=== PATIENT | male | born 1980 | race Caucasian/White ===

== ENCOUNTER 2023-04-25 11:05 | Emergency (ER) | payer OTHER, SELFPAY ==
[2023-04-25 11:20] VITALS: BP 119/78; PULSE 62; RESP 20; TEMP 36.8; O2SAT 98; BMI 27.7
--- NOTE | 2023-04-25 11:31 | ED_ITS ---
HPI - Abdominal Pain General Chief Complaint: Abdominal Pain Stated Complaint: ABDOMINAL PAIN Time Seen by Provider: 04/25/23 11:31 Source: patient Mode of arrival: walk-in Limitations: no limitations History of Present Illness HPI narrative: Patient says emergency department complaining of abdominal pain. Patient states the last 3 days he has epigastric pain. He states he has been nauseated denies any diarrhea or constipation. Patient denies any vomiting. He states he felt that he had acid reflux so he has been taking Tums and [id number] antacids. He states at times it feels like it gets better but most of the times it remains. There is nothing that makes the pain better or worse. He has no previous history of abdominal problems. He denies any chest pain, shortness of breath. He denies any fever, chills, or cough. He states that when he does have a cough or clearing his throat and that makes his abdomen hurts. He denies any trauma. He denies any flank pain, hematuria, dysuria. Pain does not radiate anywhere.Patient does not drink any alcohol. He does not take any Tylenol. He has no previous history of hepatitis. He denies any IV drug use. Related Data Home Medications Medication Instructions Recorded Confirmed cetirizine 10 mg tablet (24Hour 5 mg PO DAILY PRN allergy symptoms 04/25/23 04/25/23 Allergy) Allergies Allergy/AdvReac Type Severity Reaction Status Date / Time No Known Drug Allergies Allergy Verified 04/25/23 11:23 Review of Systems ROS Status of ROS 10 or more systems reviewed and unremarkable except as noted in history and below Exam Narrative Exam Narrative: Nurses notes and vital signs reviewed and patient is not hypoxic. General: Nontoxic, Well-appearing and in no apparent distress. Skin: Warm, dry, no pallor noted. No Rash Head: Normocephalic, atraumatic. Neck: Supple, non-tender. Eye: Pupils are equal, round and EOMI. No scleral icterus. Ears, Nose, Mouth, and Throat: TM clear, no posterior oropharynx erythema or nasal mucosal hypertrophy, uvula is mid-line Oral mucosa is moist Cardiovascular: Regular Rate and Rhythm without murmur, gallop or rub. Respiratory: No accessory muscle use or respiratory distress. Lungs are clear to auscultation, no wheezing, rales or rhonchi Chest Wall: no tenderness Back: No midline thoracic or lumbar vertebral tenderness. No CVA tenderness Musculoskeletal: normal ROM, no calf or popliteal tenderness, no lower extremity edema/swelling GI: Abdomen is soft, non-distended. Normal bowel sounds.. Mild right upper quadrant tenderness to palpation. No rebound, guarding, or rigidity noted. Neurological: A&O x4. No cranial nerve dysfunction observed. No truncal ataxia. Moves all extremities. Sensation intact. Psychiatric: Cooperative and interactive. Normal mood and affect. Constitutional Vital Signs, click to edit/add: Last Vital Signs Temp 98.2 F 04/25/23 11:20 Pulse 62 04/25/23 11:20 Resp 20 04/25/23 11:20 BP 119/78 04/25/23 11:20 Pulse Ox 98 04/25/23 11:20 O2 Del Method Room Air 04/25/23 11:20 Course Vital Signs Vital signs: Vital Signs Temperature 98.2 F 04/25/23 11:20 Pulse Rate 62 04/25/23 11:20 Respiratory Rate 20 04/25/23 11:20 Blood Pressure 119/78 04/25/23 11:20 Pulse Oximetry 98 04/25/23 11:20 Oxygen Delivery Method Room Air 04/25/23 11:20 Temperature 98.2 F 04/25/23 11:20 Pulse Rate 62 04/25/23 11:20 Respiratory Rate 20 04/25/23 11:20 Blood Pressure 119/78 04/25/23 11:20 Pulse Oximetry 98 04/25/23 11:20 Oxygen Delivery Method Room Air 04/25/23 11:20 MDM - Abdominal Pain MDM Narrative Medical decision making narrative: Patient was given IV fluids, Zofran, and Toradol. Patient had CT abdomen and pelvis which did not show anything acute. Right upper quadrant ultrasound shows sludge. Discussed all results with Dr. Nicole who advised the patient should follow-up with a recreation worker. This time there is no signs of acute cholecystitis. Patient is instructed to avoid fatty foods and fried foods. He is advised to not take any Tylenol and not to drink any alcohol. He is follow-up with his primary care doctor and recreation worker. At this time the patient is without objective evidence of an acute process requiring hospitalization or inpatient management. The patient has remained hemodynamically stable. No additional indication for emergent studies at this time. I answered all questions. Discussed discharge instructions including standard anticipatory guidance and what should prompt a return to the emergency department, including if they get worse are not getting better or develops any new or concerning symptoms. I've given them specific time frame in which to follow-up, and who to follow-up with. The patient demonstrates understanding. Patient is nontoxic and stable for discharge with outpatient follow-up. This note was created with the assistance of a speech recognition program. Although the intention is to generate documents that actually reflects the content of the visit, no guarantees can be provided that every mistake has been identified and corrected by editing. Differential Diagnosis Differential diagnosis: Likely abdominal pain, acute appendicitis, calculus of kidney, diverticulitis, gastroenteritis and pancreatitis Lab Data Attestation: I reviewed the patient's lab results. Labs: Lab Results 04/25/23 04/25/23 Range/Units 11:30 13:00 WBC 7.1 (4.0-11.0) 10^3/uL RBC 5.35 (4.70-6.10) 10^6/uL Hgb 15.5 (14.0-18.0) g/dL Hct 46.6 (42.0-54.0) % MCV 87.1 (80.0-94.0) fL MCH 29.0 (25.9-34.0) pg MCHC 33.3 (29.9-35.2) g/dL RDW 12.6 (11.0-15.0) % Plt Count 182 (150-450) 10^3/uL MPV 8.8 L (9.5-13.5) fL Neut % (Auto) 68.6 (43.0-75.0) % Lymph % (Auto) 19.4 L (20.5-60.0) % [place] % (Auto) 8.7 (1.7-12.0) % Eos % (Auto) 2.1 (0.9-7.0) % Baso % (Auto) 0.6 (0.2-2.0) % Neut # (Auto) 4.9 (1.4-6.5) 10^3/uL Lymph # (Auto) 1.4 (1.2-3.8) 10^3/uL [place] # (Auto) 0.6 (0.3-0.8) 10^3/uL Eos # (Auto) 0.2 (0.0-0.7) 10^3/uL Baso # (Auto) 0.0 (0.0-0.1) 10^3/uL Abs Immat Gran (auto) 0.04 H (0.00-0.03) 10^3/uL Imm/Tot Granulo (auto) 0.6 H (0.0-0.5) % Sodium 141 (136-145) mmol/L Potassium 4.0 (3.5-5.1) mmol/L Chloride 105 (98-107) mmol/L Carbon Dioxide 27.0 (21.0-32.0) mmol/L Anion Gap 13.0 BUN 16.0 (7.0-18.0) mg/dL Creatinine 1.11 (0.70-1.30) mg/dL Est GFR ( Amer) >60 (>=60) Est GFR (Non-Af Amer) >60 (>=60) BUN/Creatinine Ratio 14.4 Glucose 112 H (74-106) mg/dL Lactate 1.0 (0.4-2.0) mmol/L Calcium 8.9 (8.5-10.1) mg/dL Total Bilirubin 2.0 H (0.2-1.0) mg/dL AST 89 H (15-37) U/L ALT 110 H (16-63) U/L Alkaline Phosphatase 64 (46-116) U/L Total Protein 7.4 (6.4-8.2) g/dL Albumin 4.5 (3.4-5.0) g/dL Globulin 2.9 g/dL Albumin/Globulin Ratio 1.6 Lipase 44.0 L (73.0-393.0) U/L Urine Color Lt. yellow (YELLOW) Urine Clarity Clear (CLEAR) Urine pH 6.0 (5.0-9.0) Ur Specific [place] 1.010 (1.005-1.025) Urine Protein Negative (NEG/TRACE) mg/dL Urine Glucose (UA) Negative (NEGATIVE) mg/dL Urine Ketones Negative (NEGATIVE) mg/dL Urine Occult Blood Trace-i (NEGATIVE) Urine Nitrite Negative (NEGATIVE) Urine Bilirubin Negative (NEGATIVE) Urine Urobilinogen 0.2 (0.2-1.0) EU/dL Ur Leukocyte Esterase Negative (NEGATIVE) Urine RBC 0-2 (0-2) #/HPF Urine WBC None seen (NONE SEEN) #/HPF Ur Squamous Epith Cells None seen (NONE/RARE) #/LPF Urine Crystals None seen (None Seen) #/HPF Urine Bacteria Trace A (NONE SEEN) #/HPF Urine Casts None seen (NONE SEEN) #/LPF Urine Mucus None seen (NONE SEEN) Ur Culture Indicated? No Discharge Plan Discharge Chief Complaint: Abdominal Pain Clinical Impression: Elevation of levels of liver transaminase levels, Abdominal pain Patient Disposition: Home, Self-Care Time of Disposition Decision: 14:42 Condition: Good Mode of Transportation: Private Vehicle Prescriptions / Home Meds: No Action cetirizine [24Hour Allergy] 10 mg tablet 5 mg PO DAILY PRN (Reason: allergy symptoms) Instructions: Non-Alcoholic Fatty Liver Disease (ED), Abdominal Pain (ED) Stand Alone Forms: Portal Instructions Referrals: ALETHEA GARCIA [Primary Care Provider] - 1 week Ollie iNcole MD [Physician] - 1 week
[2023-04-25 11:45] LABS: Basophils Percent Auto 0.6 % (0.2-2.0); Eosinophils Absolute Auto 0.2 10^3/uL (0.0-0.7); Eosinophils Percent Auto 2.1 % (0.9-7.0); Hematocrit 46.6 % (42.0-54.0); Hemoglobin 15.5 g/dL (14.0-18.0); Immature Granulocytes Abs Auto 0.04 10^3/uL (0.00-0.03); Immature Granulocytes Pct Auto 0.6 % (0.0-0.5); Lymphocytes Absolute Auto 1.4 10^3/uL (1.2-3.8); Lymphocytes Percent Auto 19.4 % (20.5-60.0); Mean Corpuscular HGB Conc 33.3 g/dL (29.9-35.2); Mean Corpuscular Volume 87.1 fL (80.0-94.0); Mean Platelet Volume 8.8 fL (9.5-13.5); Monocytes Absolute Auto 0.6 10^3/uL (0.3-0.8); Monocytes Percent Auto 8.7 % (1.7-12.0); Neutrophils Absolute Auto 4.9 10^3/uL (1.4-6.5); Neutrophils Percent Auto 68.6 % (43.0-75.0); Platelet Count 182 10^3/uL (150-450); Red Blood Count 5.35 10^6/uL (4.70-6.10); Red Cell Distribution Width 12.6 % (11.0-15.0); White Blood Count 7.1 10^3/uL (4.0-11.0)
[2023-04-25] MEDS: 0.9 % SODIUM CHLORIDE 1,000 ML 999 ML IV (11:45)
[2023-04-25 12:05] LABS: Alanine Aminotransferase 110 U/L (16-63); Albumin Globulin Ratio 1.6; Albumin Level 4.5 g/dL (3.4-5.0); Alkaline Phosphatase 64 U/L (46-116); Aspartate Amino Transferase 89 U/L (15-37); BUN Creatinine Ratio 14.4; Calcium 8.9 mg/dL (8.5-10.1); Chloride 105 mmol/L (98-107); Estimated GFR (African America >60 (>=60); Estimated GFR (Non-African Ame >60 (>=60); Globulin 2.9 g/dL; Glucose 112 mg/dL (74-106); Sodium 141 mmol/L (136-145); Total Protein 7.4 g/dL (6.4-8.2)
--- NOTE | 2023-04-25 12:10 | US_ITS ---
The [address] [address] Patient Name: JULIO KULKARNI MRN: [id number] date: 1980 Sex: M Assigned Patient Location: ER Current Patient Location: ER Accession/Order Number: [id number] Exam Date: 04/25/2023 12:30 Report Date: 04/25/2023 13:21 At the request of: FRANKIE BEAN Procedure: US right upper quadrant PROCEDURE: US right upper quadrant, 04/25/2023 12:30 PM EDT CLINICAL INDICATIONS: Right upper quadrant abdominal pain, symptoms for 3 days COMPARISON: None TECHNIQUE: Right upper quadrant abdominal sonogram FINDINGS: Visualized pancreas is unremarkable. No ductal dilatation is seen. Portions of head and tail segments are obscured. Coarsened hepatic echotexture, mild increased echogenicity noted. Visualized contour is smooth. Visualized portal vein patent with antegrade flow. Focal abnormality is not evident. Main portal vein is patent with antegrade phasic flow, normal velocity. Right lobe measures up to 16 cm craniocaudally. Common bile duct 0.6 cm. Wall thickening is not evident. Dependent sludge or nonshadowing microcalculi is seen near the gallbladder fundus. Convincing shadowing calculus is not evident. No localized pain. Right kidney is normal in morphology. It measures 9.3 x 6.4 x 5.7 cm. No hydronephrosis or shadowing calculus is identified. Focal renal abnormality is not demonstrated. No free fluid. US/US right upper quadrant IMPRESSION: 1. Mild dependent gallbladder sludge or not shadowing microcalculi in the fundus of the gallbladder. Shadowing calculus, wall thickening, localized pain, or bile duct dilatation are not evident 2. Borderline hepatomegaly and hepatic steatosis Electronically authenticated by: SASCHA GALO Date: 04/25/2023 13:21
[2023-04-25] MEDS: ONDANSETRON PF 4 MG/2 ML VIAL IV (12:22)
[2023-04-25] MEDS: KETOROLAC TROMETHAMINE 30 MG/ML VIAL IVP (12:22)
[2023-04-25] MEDS: FAMOTIDINE/PF 20 MG/2 ML VIAL IV (12:22)
[2023-04-25 13:20] LABS: Bilirubin Urine NEGATIVE (NEGATIVE); Blood Urine TRACE-I (NEGATIVE); Clarity Urine CLEAR (CLEAR); Color Urine LT. YELLOW (YELLOW); Glucose Urine UA NEGATIVE (NEGATIVE); Ketones Urine NEGATIVE (NEGATIVE); Leukocyte Esterase Urine NEGATIVE (NEGATIVE); Nitrite Urine NEGATIVE (NEGATIVE); Protein Urine NEGATIVE (NEG/TRACE); Urobilinogen Urine 0.2 EU/dL (0.2-1.0)
[2023-04-25 13:24] LABS: Urine Microscopic Indicated YES
[2023-04-25 13:37] LABS: RBC Urine 0-2 #/HPF (0-2); WBC Urine NONE SEEN #/HPF (NONE SEEN)
[2023-04-25 13:38] LABS: Bacteria Urine TRACE #/HPF (NONE SEEN); Cast Seen? NONE SEEN #/LPF (NONE SEEN); Crystals Seen? None Seen #/HPF (None Seen); Mucus Urine NONE SEEN (NONE SEEN); Squamous Epithelial Cell Urine NONE SEEN #/LPF (NONE/RARE); Urine Culture Indicated NO
--- NOTE | 2023-04-25 14:08 | CT_ITS ---
The [address] [address] Patient Name: JULIO KULKARNI MRN: [id number] date: 1980 Sex: M Assigned Patient Location: ER Current Patient Location: ER Accession/Order Number: [id number] Exam Date: 04/25/2023 14:00 Report Date: 04/25/2023 14:24 At the request of: FRANKIE BEAN Procedure: CT abdomen pelvis w con CT abdomen pelvis w con, 04/25/2023 2:00 PM EDT INDICATION: Right upper quadrant pain x2 days after eating. COMPARISON: Right upper quadrant ultrasound 04/25/2023 TECHNIQUE: Axial images of the abdomen and pelvis were obtained after the administration of IV contrast. Multiplanar reformatted images were generated and reviewed as needed. Dose reduction techniques were achieved by using automated exposure control and/or adjustment of mA and/or kV according to patient size and/or use of iterative reconstruction technique. FINDINGS: No consolidation or effusion. The liver, gallbladder, pancreas and adrenals are unremarkable. Calcified splenic granulomas. Symmetric nephrograms without evidence of obstruction. 1 mm nonobstructing calculus upper pole the left kidney. No ureteral or urinary bladder calculi. Prostate gland and seminal vesicles unremarkable. No aortic aneurysm. No bowel obstruction or acute focal inflammation. Normal appendix. No pneumatosis, pneumoperitoneum or ascites. No mesenteric or retroperitoneal lymphadenopathy. No acute fracture or dislocation. Hemangioma T11 vertebral body. CT/CT abdomen pelvis w con IMPRESSION: 1. No acute findings. 2. Nonobstructing left nephrolithiasis. Electronically authenticated by: YOBANY RAYMUNDO Date: 04/25/2023 14:24
[2023-04-26 08:10] LABS: HBsAg Screen Negative (Negative); HCV Ab Non Reactive (Non Reactive); Hep A Ab, IgM Negative (Negative); Hep B Core Ab, IgM Negative (Negative)
== END 2023-04-25 15:08 | disposition home or self-care (01) ==
PROVIDERS: Emergency Provider Emergency Medicine; PCP Family Medicine
DX: R10.9 Unspecified abdominal pain (principal); R74.01 Elevation of levels of liver transaminase levels; Z79.899 Other long term (current) drug therapy
CPT/HCPCS: 36415; 74177; 76705; 80053; 80074; 81001; 83605; 83690; 85025; 96374; 96375; 99285; Q9967

== ENCOUNTER 2023-05-06 22:58 | Emergency (ER) | payer OTHER, SELFPAY ==
[2023-05-06] VITALS (8 sets, daily range): BP systolic 123–124; BP diastolic 75–89; PULSE 53–64; RESP 12–20; TEMP 36.5; O2SAT 97–100; BMI 27.8
--- NOTE | 2023-05-06 23:17 | PC.NURSE ---
patient states around 5pm he developed heartburn pain states it felt like heartburn but alos felt the pain in his abdomen. states now the pain is less in his upper chest and more generalized to abdomen and wraps around to his back. states he last ate chicken for dinner around 5pm. patient states he had a similar episode a few weeks ago and was seen in this ER and had testing done and was told he had a fatty liver . patient states he follow up with his PCP and was told he had ketosis and kidney infection . pcp started patient on pepcid, sucrafate, and an antibiotic. has been taking all directly as prescribed. states he just had repeat labs drawn today but has not had results yet and has follow up appointment with PCP scheduled. denies any other medical history. denies shortness of breath. denies being nauseous at this time but states earlier he did feel nauseous. denies any constipation, states he recently has had loose stools but believes this is related to antibiotic use.
--- NOTE | 2023-05-06 23:18 | ED.ABDPAIN1 ---
HPI - Abdominal Pain General Chief Complaint: Abdominal Pain Stated Complaint: abd pain Time Seen by Provider: 05/06/23 23:13 Source: patient Mode of arrival: walk-in Limitations: no limitations History of Present Illness HPI narrative: presents complaining of epigastric abdominal pain. states seen here about 2 weeks ago for same pain and workup including CT and US gallbladder found fatty liver and gallbladder sludge. Has been taking prescribed Pepcid. Pain again tonight since 5pm. Not short of breath. No vomiting. Presents because of the pain MD elicited complaint: Reports abdominal pain Related Data Home Medications Medication Instructions Recorded Confirmed cetirizine 10 mg tablet (24Hour 5 mg PO DAILY PRN allergy symptoms 04/25/23 04/25/23 Allergy) cefuroxime axetil 500 mg tablet 500 mg PO DAILY 05/06/23 05/06/23 famotidine 20 mg tablet 20 mg PO DAILY 05/06/23 05/06/23 sucralfate 1 gram tablet 1 g PO DAILY 05/06/23 05/06/23 Allergies Allergy/AdvReac Type Severity Reaction Status Date / Time No Known Drug Allergies Allergy Verified 04/25/23 11:23 Review of Systems ROS Status of ROS 10 or more systems reviewed and unremarkable except as noted in history and below Exam Constitutional Vital Signs, click to edit/add: Last Vital Signs Temp 97.7 F 05/06/23 23:02 Pulse 61 05/06/23 23:50 Resp 15 05/06/23 23:50 BP 124/89 05/06/23 23:33 Pulse Ox 97 05/06/23 23:50 O2 Del Method Room Air 05/06/23 23:02 Common normals: average body habitus, oriented x3, healthy appearing and well nourished Other: mild distress due to pain Eye Common normals: PERRL, EOMs intact bilaterally and conjunctivae normal Respiratory Common normals: normal respiratory effort, no retractions, no use of accessory muscles and clear to auscultation bilaterally GI Other: mod RUQ tenderness Extremity Common normals: normal to inspection and full ROM Neuro Common normals: oriented x3, CN's II-XII intact bilaterally, moves all extremities, no focal motor deficits and no sensory deficits noted Psych Appearance: grossly normal Course Vital Signs Vital signs: Vital Signs Temperature 97.7 F 05/06/23 23:02 Pulse Rate 58 L 05/06/23 23:02 Respiratory Rate 20 05/06/23 23:02 Blood Pressure 123/75 05/06/23 23:02 Pulse Oximetry 100 05/06/23 23:02 Oxygen Delivery Method Room Air 05/06/23 23:02 Temperature 97.7 F 05/06/23 23:02 Pulse Rate 61 05/06/23 23:50 Respiratory Rate 15 05/06/23 23:50 Blood Pressure 124/89 05/06/23 23:33 Pulse Oximetry 97 05/06/23 23:50 Oxygen Delivery Method Room Air 05/06/23 23:02 MDM - Abdominal Pain MDM Narrative Medical decision making narrative: patient returns with epigastric and RUQ pain. Seen previously and found to have gallbladder sludge. Exam with RUQ tenderness. pain resolved after Toradol. Workup included neg serial troponins. Patient discharged home and recommended he follow up with [facility] with working diagnosis of biliary colic Lab Data Labs: Lab Results 05/06/23 05/06/23 05/07/23 Range/Units 23:13 23:34 02:01 WBC 7.3 (4.0-11.0) 10^3/uL RBC 5.01 (4.70-6.10) 10^6/uL Hgb 14.6 (14.0-18.0) g/dL Hct 43.6 (42.0-54.0) % MCV 87.0 (80.0-94.0) fL MCH 29.1 (25.9-34.0) pg MCHC 33.5 (29.9-35.2) g/dL RDW 12.8 (11.0-15.0) % Plt Count 178 (150-450) 10^3/uL MPV 9.2 L (9.5-13.5) fL Neut % (Auto) 60.4 (43.0-75.0) % Lymph % (Auto) 25.4 (20.5-60.0) % [place] % (Auto) 11.1 (1.7-12.0) % Eos % (Auto) 2.2 (0.9-7.0) % Baso % (Auto) 0.6 (0.2-2.0) % Neut # (Auto) 4.4 (1.4-6.5) 10^3/uL Lymph # (Auto) 1.9 (1.2-3.8) 10^3/uL [place] # (Auto) 0.8 (0.3-0.8) 10^3/uL Eos # (Auto) 0.2 (0.0-0.7) 10^3/uL Baso # (Auto) 0.0 (0.0-0.1) 10^3/uL Abs Immat Gran (auto) 0.02 (0.00-0.03) 10^3/uL Imm/Tot Granulo (auto) 0.3 (0.0-0.5) % D-Dimer <0.19 (<=0.59) mg/L FEU Sodium 138 (136-145) mmol/L Potassium 3.6 (3.5-5.1) mmol/L Chloride 102 (98-107) mmol/L Carbon Dioxide 27.9 (21.0-32.0) mmol/L Anion Gap 11.7 BUN 13.0 (7.0-18.0) mg/dL Creatinine 1.11 (0.70-1.30) mg/dL Est GFR ( Amer) >60 (>=60) Est GFR (Non-Af Amer) >60 (>=60) BUN/Creatinine Ratio 11.7 Glucose 107 H (74-106) mg/dL Lactate 0.9 (0.4-2.0) mmol/L Calcium 8.6 (8.5-10.1) mg/dL Total Bilirubin 1.4 H (0.2-1.0) mg/dL AST 92 H (15-37) U/L ALT 93 H (16-63) U/L Alkaline Phosphatase 73 (46-116) U/L Troponin I High Sens <4.0 L 4.4 (4.0-76.1) pg/mL Total Protein 6.8 (6.4-8.2) g/dL Albumin 4.1 (3.4-5.0) g/dL Globulin 2.7 g/dL Albumin/Globulin Ratio 1.5 Lipase 63.0 L (73.0-393.0) U/L Urine Color Lt. yellow (YELLOW) Urine Clarity Clear (CLEAR) Urine pH 6.5 (5.0-9.0) Ur Specific [place] 1.015 (1.005-1.025) Urine Protein Negative (NEG/TRACE) mg/dL Urine Glucose (UA) Negative (NEGATIVE) mg/dL Urine Ketones Negative (NEGATIVE) mg/dL Urine Occult Blood Trace-i (NEGATIVE) Urine Nitrite Negative (NEGATIVE) Urine Bilirubin Negative (NEGATIVE) Urine Urobilinogen 1.0 (0.2-1.0) EU/dL Ur Leukocyte Esterase Negative (NEGATIVE) Discharge Plan Discharge Chief Complaint: Abdominal Pain Clinical Impression: Abdominal pain, Biliary colic Patient Disposition: Home, Self-Care Prescriptions / Home Meds: No Action cetirizine [24Hour Allergy] 10 mg tablet 5 mg PO DAILY PRN (Reason: allergy symptoms) famotidine 20 mg tablet 20 mg PO DAILY sucralfate 1 gram tablet 1 g PO DAILY cefuroxime axetil 500 mg tablet 500 mg PO DAILY Instructions: Biliary Colic (ED) Additional Instructions: follow up with gen. surgery. return if pain recurs Stand Alone Forms: Portal Instructions Referrals: ALETHEA GARCIA [Primary Care Provider] - 1 week
--- NOTE | 2023-05-06 23:21 | ECG_ITS ---
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
[2023-05-06 23:30] LABS: Basophils Percent Auto 0.6 % (0.2-2.0); Eosinophils Absolute Auto 0.2 10^3/uL (0.0-0.7); Eosinophils Percent Auto 2.2 % (0.9-7.0); Hematocrit 43.6 % (42.0-54.0); Hemoglobin 14.6 g/dL (14.0-18.0); Immature Granulocytes Abs Auto 0.02 10^3/uL (0.00-0.03); Immature Granulocytes Pct Auto 0.3 % (0.0-0.5); Lymphocytes Absolute Auto 1.9 10^3/uL (1.2-3.8); Lymphocytes Percent Auto 25.4 % (20.5-60.0); Mean Corpuscular HGB Conc 33.5 g/dL (29.9-35.2); Mean Corpuscular Hemoglobin 29.1 pg (25.9-34.0); Mean Platelet Volume 9.2 fL (9.5-13.5); Monocytes Absolute Auto 0.8 10^3/uL (0.3-0.8); Monocytes Percent Auto 11.1 % (1.7-12.0); Neutrophils Absolute Auto 4.4 10^3/uL (1.4-6.5); Neutrophils Percent Auto 60.4 % (43.0-75.0); Platelet Count 178 10^3/uL (150-450); Red Blood Count 5.01 10^6/uL (4.70-6.10); Red Cell Distribution Width 12.8 % (11.0-15.0); White Blood Count 7.3 10^3/uL (4.0-11.0)
[2023-05-06 23:44] LABS: D Dimer <0.19 mg/L FEU (<=0.59)
[2023-05-06] MEDS: 0.9 % SODIUM CHLORIDE 1,000 ML 999 ML IV (23:46)
[2023-05-06] MEDS: KETOROLAC TROMETHAMINE 30 MG/ML VIAL IVP (23:47)
[2023-05-06] MEDS: ONDANSETRON PF 4 MG/2 ML VIAL IV (23:47)
[2023-05-06 23:54] LABS: Alanine Aminotransferase 93 U/L (16-63); Albumin Globulin Ratio 1.5; Albumin Level 4.1 g/dL (3.4-5.0); Alkaline Phosphatase 73 U/L (46-116); Anion Gap 11.7; Aspartate Amino Transferase 92 U/L (15-37); BUN Creatinine Ratio 11.7; Bilirubin Total 1.4 mg/dL (0.2-1.0); Calcium 8.6 mg/dL (8.5-10.1); Carbon Dioxide 27.9 mmol/L (21.0-32.0); Chloride 102 mmol/L (98-107); Estimated GFR (African America >60 (>=60); Estimated GFR (Non-African Ame >60 (>=60); Globulin 2.7 g/dL; Glucose 107 mg/dL (74-106); Lactate/Lactic Acid 0.9 mmol/L (0.4-2.0); Potassium 3.6 mmol/L (3.5-5.1); Sodium 138 mmol/L (136-145); Total Protein 6.8 g/dL (6.4-8.2); Troponin I High Sensitivity <4.0 pg/mL (4.0-76.1)
[2023-05-07 00:14] LABS: Bilirubin Urine NEGATIVE (NEGATIVE); Blood Urine TRACE-I (NEGATIVE); Clarity Urine CLEAR (CLEAR); Color Urine LT. YELLOW (YELLOW); Glucose Urine UA NEGATIVE (NEGATIVE); Ketones Urine NEGATIVE (NEGATIVE); Leukocyte Esterase Urine NEGATIVE (NEGATIVE); Nitrite Urine NEGATIVE (NEGATIVE); Protein Urine NEGATIVE (NEG/TRACE); Specific Gravity Urine 1.015 (1.005-1.025); pH Urine 6.5 (5.0-9.0)
[2023-05-07 00:33] LABS: Urine Microscopic Indicated NO
[2023-05-07 02:26] LABS: Troponin I High Sensitivity 4.4 pg/mL (4.0-76.1)
== END 2023-05-07 02:50 | disposition home or self-care (01) ==
PROVIDERS: Emergency Provider Internal Medicine; PCP Family Medicine
DX: K80.50 Calculus of bile duct without cholangitis or cholecystitis without obstruction (principal); R10.11 Right upper quadrant pain; R10.13 Epigastric pain
CPT/HCPCS: 36415; 80053; 81003; 83605; 83690; 84484; 85025; 85378; 93005; 96374; 96375; 99285

== ENCOUNTER 2024-01-19 21:49 | Emergency (ER) | payer OTHER, SELFPAY ==
[2024-01-19 21:55] VITALS: BP 151/89; PULSE 77; TEMP 36.9; O2SAT 96; BMI 27.7
[2024-01-19 21:56] VITALS: BP 151/89
--- NOTE | 2024-01-19 22:01 | ECG_ITS ---
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
--- NOTE | 2024-01-19 22:23 | XR_ITS ---
The [address] [address] Patient Name: JULIO KULKARNI MRN: [id number] date: 1980 Sex: M Assigned Patient Location: ER Current Patient Location: ER Accession/Order Number: [id number] Exam Date: 01/19/2024 23:05 Report Date: 01/20/2024 00:20 At the request of: JIMBO MULLIGAN Procedure: XR chest 1V XR chest 1V 01/19/2024 11:05 PM EDT CLINICAL INDICATION: Shortness of breath COMPARISON: 09/17/2021 TECHNIQUE: Portable semiupright AP view of the chest. FINDINGS: There are no tubes or implants noted. The cardiomediastinal silhouette and pulmonary vasculature are within normal limits. Right upper lung zone calcified granuloma. The lungs are clear. No pneumothorax or pleural effusion. Osseous structures and soft tissues are within normal limits. XR/XR chest 1V IMPRESSION: No acute cardiopulmonary abnormality. Electronically authenticated by: CRISTIANO REARDON Date: 01/20/2024 00:20
--- NOTE | 2024-01-19 22:25 | ED_ITS ---
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 Tonight at home in the shower he did not feel right . [place] weak and short of breath. laid down without improvement. BP elevated at home and decided to come in. No nausea. non smoker Related Data Home Medications ?Medication ?Instructions ?Recorded ?Confirmed cetirizine 10 mg tablet (24Hour 5 mg PO DAILY PRN allergy symptoms 04/25/23 01/19/24 Allergy) famotidine 20 mg tablet 20 mg PO DAILY 05/06/23 01/19/24 Allergies Allergy/AdvReac Type Severity Reaction Status Date / Time No Known Drug Allergies Allergy Verified 01/19/24 21:59 Review of Systems ROS Status of ROS 10 or more systems reviewed and unremark able except as noted in history and below Exam Constitutional Vital Signs, click to edit/add: Last Vital Signs Temp 98.5 F 01/19/24 21:55 Pulse 67 01/20/24 01:04 Resp 17 01/20/24 01:04 BP 118/78 01/20/24 01:00 Pulse Ox 96 01/19/24 21:55 O2 Del Method Room Air 01/19/24 21:55 Common normals: no apparent distress, average body habitus, oriented x3, no watson itations, healthy appearing, alert and well nourished [facility] Common normals: normocephalic and head/scalp atraumatic Eye Common normals: EOMs intact bilaterally and conjunctivae normal Respiratory Common normals: normal respiratory effort, no retractions, no use of accessory muscles and clear to auscultation bilaterally Cardio Common normals: regular rate, regular rhythm, S1 normal heart sound and S2 n ormal heart sound GI Common normals: Normal to inspection, nondistended, normoactive bowel sounds present, soft to palpation and non-tender Extremity Common normals: normal to inspection and full ROM Neuro Common normals: oriented x3, CN's II-XII intact bilaterally, moves all extremities and no focal motor deficits Psych Appearance: grossly normal Course Vital Signs Vital signs: Vital Signs Temperature 98.5 F 01/19/24 21:55 Pulse Rate 77 01/19/24 21:55 Respiratory Rate 18 01/19/24 21:55 Blood Pressure 151/89 H 01/19/24 21:55 Pulse Oximetry 96 01/19/24 21:55 Oxygen Delivery Method Room Air 01/19/24 21:55 Temperature 98.5 F 01/19/24 21:55 Pulse Rate 67 01/20/24 01:04 Respiratory Rate 17 01/20/24 01:04 Blood Pressure 118/78 01/20/24 01:00 Pulse Oximetry 96 01/19/24 21:55 Oxygen Delivery Method Room Air 01/19/24 21:55 MDM - Weakness MDM Narrative Medical decision making narrative: patient presented complaining of weakness sensation and also sensation of short of breath. Pulse ox RA 96% and patient without respiratory distress. PE normal. Workup in the department neg including normal d-dimer and neg serial troponin. Patient rechecked and now is asymptomatic. ? anxiety as cause. Discharged home to follow up with his family doctor Lab Data Labs: Lab Results 01/19/24 01/20/24 Range/Units 22:31 00:52 WBC 7.0 (4.0-11.0) 10^3/uL RBC 4.95 (4.70-6.10) 10^6/uL Hgb 14.5 (14.0-18.0) g/dL Hct 43.2 (42.0-54.0) % MCV 87.3 (80.0-94.0) fL MCH 29.3 (25.9-34.0) pg MCHC 33.6 (29.9-35.2) g/dL RDW 12.6 (11.0-15.0) % Plt Count 155 (150-450) 10^3/uL MPV 9.2 L (9.5-13.5) fL Neut % (Auto) 61.2 (43.0-75.0) % Lymph % (Auto) 23.0 (20.5-60.0) % [place] % (Auto) 9.9 (1.7-12.0) % Eos % (Auto) 4.4 (0.9-7.0) % Baso % (Auto) 0.9 (0.2-2.0) % Neut # (Auto) 4.3 (1.4-6.5) 10^3/uL Lymph # (Auto) 1.6 (1.2-3.8) 10^3/uL [place] # (Auto) 0.7 (0.3-0.8) 10^3/uL Eos # (Auto) 0.3 (0.0-0.7) 10^3/uL Baso # (Auto) 0.1 (0.0-0.1) 10^3/uL Abs Immat Gran (auto) 0.04 H (0.00-0.03) 10^3/uL Imm/Tot Granulo (auto) 0.6 H (0.0-0.5) % D-Dimer 0.19 (<=0.59) mg/L FEU Sodium 140 (136-145) mmol/L Potassium 3.8 (3.5-5.1) mmol/L Chloride 105 (98-107) mmol/L Carbon Dioxide 26.9 (21.0-32.0) mmol/L Anion Gap 11.9 BUN 22.0 H (7.0-18.0) mg/dL Creatinine 1.13 (0.70-1.30) mg/dL Est GFR ( Amer) >60 (>=60) Est GFR (Non-Af Amer) >60 (>=60) BUN/Creatinine Ratio 19.5 Glucose 142 H (74-106) mg/dL Calcium 8.9 (8.5-10.1) mg/dL Total Bilirubin 1.0 (0.2-1.0) mg/dL AST 20 (15-37) U/L ALT 39 (16-63) U/L Alkaline Phosphatase 75 (46-116) U/L Troponin I High Sens <4.0 L <4.0 L (4.0-76.1) pg/mL Total Protein 6.7 (6.4-8.2) g/dL Albumin 3.9 (3.4-5.0) g/dL Globulin 2.8 g/dL Albumin/Globulin Ratio 1.4 Lipase 22.0 (16.0-77.0) U/L Imaging Data Chest x-ray: Radiologist's impression: ITS Impressions Chest X-Ray 01/19/24 22:23 IMPRESSION: No acute cardiopulmonary abnormality. Electronically authenticated by: CRISTIANO REARDON Date: 01/20/2024 00:20 Discharge Plan Discharge Stand Alone Forms: Portal Instructions Chief Complaint: Weakness Clinical Impression: Weakness Patient Disposition: Home, Self-Care Prescriptions / Home Meds: No Action cetirizine [24Hour Allergy] 10 mg tablet 5 mg PO DAILY PRN (Reason: allergy symptoms) famotidine 20 mg tablet 20 mg PO DAILY Print Language: Irish Instructions: Weakness (ED) Additional Instructions: follow up with your doctor for a recheck in the next couple of days Referrals: ALETHEA GARCIA [Primary Care Provider] - 1 week
[2024-01-19 22:37] LABS: Basophils Absolute Auto 0.1 10^3/uL (0.0-0.1); Basophils Percent Auto 0.9 % (0.2-2.0); Eosinophils Absolute Auto 0.3 10^3/uL (0.0-0.7); Eosinophils Percent Auto 4.4 % (0.9-7.0); Hematocrit 43.2 % (42.0-54.0); Hemoglobin 14.5 g/dL (14.0-18.0); Immature Granulocytes Abs Auto 0.04 10^3/uL (0.00-0.03); Immature Granulocytes Pct Auto 0.6 % (0.0-0.5); Lymphocytes Absolute Auto 1.6 10^3/uL (1.2-3.8); Mean Corpuscular HGB Conc 33.6 g/dL (29.9-35.2); Mean Corpuscular Hemoglobin 29.3 pg (25.9-34.0); Mean Corpuscular Volume 87.3 fL (80.0-94.0); Mean Platelet Volume 9.2 fL (9.5-13.5); Monocytes Absolute Auto 0.7 10^3/uL (0.3-0.8); Monocytes Percent Auto 9.9 % (1.7-12.0); Neutrophils Absolute Auto 4.3 10^3/uL (1.4-6.5); Neutrophils Percent Auto 61.2 % (43.0-75.0); Platelet Count 155 10^3/uL (150-450); Red Blood Count 4.95 10^6/uL (4.70-6.10); Red Cell Distribution Width 12.6 % (11.0-15.0)
[2024-01-19] MEDS: 0.9 % SODIUM CHLORIDE 1,000 ML 999 ML IV (22:44)
[2024-01-19 22:47] VITALS: PULSE 77
[2024-01-19 22:51] LABS: D Dimer 0.19 mg/L FEU (<=0.59)
[2024-01-19 22:52] VITALS: PULSE 74
[2024-01-19 22:55] LABS: Alanine Aminotransferase 39 U/L (16-63); Albumin Globulin Ratio 1.4; Albumin Level 3.9 g/dL (3.4-5.0); Alkaline Phosphatase 75 U/L (46-116); Anion Gap 11.9; Aspartate Amino Transferase 20 U/L (15-37); BUN Creatinine Ratio 19.5; Calcium 8.9 mg/dL (8.5-10.1); Carbon Dioxide 26.9 mmol/L (21.0-32.0); Chloride 105 mmol/L (98-107); Estimated GFR (African America >60 (>=60); Estimated GFR (Non-African Ame >60 (>=60); Globulin 2.8 g/dL; Glucose 142 mg/dL (74-106); Potassium 3.8 mmol/L (3.5-5.1); Sodium 140 mmol/L (136-145); Total Protein 6.7 g/dL (6.4-8.2); Troponin I High Sensitivity <4.0 pg/mL (4.0-76.1)
[2024-01-19 23:16] VITALS: BP 127/86
[2024-01-19 23:30] VITALS: BP 124/80
[2024-01-20] VITALS (19 sets, daily range): BP systolic 114–119; BP diastolic 73–85; PULSE 65–78
[2024-01-20 01:15] LABS: Troponin I High Sensitivity <4.0 pg/mL (4.0-76.1)
== END 2024-01-20 01:48 | disposition home or self-care (01) ==
PROVIDERS: Emergency Provider Internal Medicine; PCP Family Medicine
DX: R53.1 Weakness (principal); Z79.899 Other long term (current) drug therapy
CPT/HCPCS: 36415; 71045; 80053; 83690; 84484; 85025; 85378; 93005; 99285

== ENCOUNTER 2024-10-06 15:33 | Emergency (ER) | payer OTHER, SELFPAY ==
[2024-10-06 15:37] VITALS: BP 122/86; PULSE 130; TEMP 38.7; O2SAT 97; BMI 27.7
--- NOTE | 2024-10-06 15:42 | XR_ITS ---
The [address] [address] Patient Name: JULIO KULKARNI MRN: [id number] date: 1980 Sex: M Assigned Patient Location: ER Current Patient Location: ED.MAIN Accession/Order Number: [id number] Exam Date: 10/06/2024 16:00 Report Date: 10/06/2024 16:57 At the request of: MACIEJ LIZ Procedure: XR chest 1V EXAM: XR chest 1V REASON FOR EXAM: Male, 44 years, Cough. TECHNIQUE: A single AP view of the chest is performed. COMPARISON: 01/19/2024. FINDINGS: The lungs are expanded and clear. Normal pleura. Normal size heart. Normal mediastinum and paula. Normal visualized pulmonary arteries. Normal visualized aortic arch and descending thoracic aorta. Normal visualized thoracic spine. Normal visualized ribs, clavicles, and shoulders. There is no demonstrated abnormality of the visualized soft tissue structures of the upper abdomen. XR/XR chest 1V IMPRESSION: Normal examination of the chest. Electronically authenticated by: CRISTY SALINAS Date: 10/06/2024 16:57
--- NOTE | 2024-10-06 15:56 | ED_ITS ---
HPI - Fever General Chief Complaint: Fever Stated Complaint: COVID (+) FEVER Time Seen by Provider: 10/06/24 15:34 Source: patient and family Mode of arrival: walk-in Limitations: no limitations History of Present Illness HPI Narrative: Patient is a 44-year-old male with a 3-day history of cough, fever who presents to the emergency department concerned that he may be dehydrated. He has had no episodes of vomiting or diarrhea. He has green sputum with coughing. He reports diffuse body aches. He took 325 mg of Tylenol prior to arrival with DayQuil. Temperatures as high as 102.0 Fahrenheit. Related Data Home Medications ?Medication ?Instructions ?Recorded ?Confirmed cetirizine 10 mg tablet (24Hour 5 mg PO DAILY PRN allergy symptoms 04/25/23 10/06/24 Allergy) methocarbamol 750 mg tablet 750 mg PO Q8H PRN pain 10/06/24 10/06/24 montelukast 10 mg tablet 10 mg PO DAILY 10/06/24 10/06/24 Previous Rx's ?Medication ?Instructions ?Recorded rdlhpecnutvywhu-[id number] 10 ml PO Q6H PRN cold symptoms 10/06/24 2 mg-30 mg-10 mg/5 mL oral syrup #200 mL (Bromfed DM) dexamethasone 4 mg tablet 4 mg PO BID 5 days #10 tabs 10/06/24 ondansetron 4 mg disintegrating 4 mg PO Q6H PRN nausea and 10/06/24 tablet vomiting #12 tabs Allergies Allergy/AdvReac Type Severity Reaction Status Date / Time No Known Drug Allergies Allergy Verified 10/06/24 15:39 Review of Systems ROS Constitutional Reports: fever and chills Ears, nose, mouth, and throat Reports: nasal congestion; Denies: throat pain Cardiovascular Denies: chest pain Respiratory Reports: cough; Denies: shortness of breath Gastrointestinal Reports: nausea; Denies: vomiting or diarrhea Musculoskeletal Denies: back pain Integumentary/Breast Denies: rash Neurological Reports: headache; Denies: numbness in extremities or weakness in extremities Hematologic/Lymphatic Denies: easy bruising or easy bleeding PFSH PFSH Social History Little interest or pleasure in doing things: not at all Feeling down, depressed, or hopeless: not at all Exam Narrative Exam Narrative: Gen.: Awake, alert, in no distress Head: Normocephalic, atraumatic ENT: Moist mucous membranes, bilateral TMs clear Respiratory: No respiratory distress, lungs clear bilaterally Cardio: Regular rate and rhythm Gastrointestinal: Abdomen is soft, nondistended and nontender to palpation Extremities: Moves extremities equally Psych: Normal mood and affect Neuro: No focal neuro deficit Skin: Warm, dry, intact Constitutional Vital Signs, click to edit/add: Last Vital Signs Temp 99.0 F 10/06/24 17:07 Pulse 105 H 10/06/24 17:07 Resp 20 10/06/24 17:07 BP 102/66 10/06/24 16:40 Pulse Ox 97 10/06/24 17:07 O2 Del Method Room Air 10/06/24 17:07 Course Vital Signs Vital signs: Vital Signs Temperature 101.7 F H 10/06/24 15:37 Pulse Rate 130 H 10/06/24 15:37 Respiratory Rate 20 10/06/24 15:37 Blood Pressure 122/86 10/06/24 15:37 Pulse Oximetry 97 10/06/24 15:37 Oxygen Delivery Method Room Air 10/06/24 15:37 Temperature 99.0 F 10/06/24 17:07 Pulse Rate 105 H 10/06/24 17:07 Respiratory Rate 20 10/06/24 17:07 Blood Pressure 102/66 10/06/24 16:40 Pulse Oximetry 97 10/06/24 17:07 Oxygen Delivery Method Room Air 10/06/24 17:07 MDM - Fever MDM Narrative Medical decision making narrative: Patient was requesting IV fluids on arrival, however he has symptoms that started yesterday and has not had any vomiting or diarrhea. Clinically he appears to have a febrile illness with upper respiratory symptoms. He was made aware of recent critical IV fluid shortage. He was medicated with Zofran, Motrin and Tylenol with improvement of fever, tachycardia and he was able to drink water, multiple large glasses with no difficulty in the ER. Chest x-ray and respiratory swabs are negative. He was reevaluated by attending physician and we will discharge him home with Bromfed-DM, Zofran, Decadron. Follow-up with PCP and return to the ER if symptoms change or worsen SHARED APC VISIT, PHYSICIAN ATTESTATION: [id number] I performed a substantive part of the MDM during the patient?s E/M visit. I personally evaluated and examined the patient. I personally made or approved the documented management plan and acknowledge its risk of complications. Medical Records Attestation: I reviewed the patient's medical records. Lab Data Attestation: I reviewed the patient's lab results. Labs: Lab Results 10/06/24 Range/Units 15:45 Influenza Type A Ag Negative Influenza Type B Ag Negative SARS-CoV-2 Ag (CV2AG) Negative (NEGATIVE) Streptococcus Screen Negative Imaging Data Chest x-ray: Attestation: I have reviewed the pertinent imaging results. Radiologist's impression: ITS Impressions Chest X-Ray 10/06/24 15:42 IMPRESSION: Normal examination of the chest. Electronically authenticated by: CRISTY SALINAS Date: 10/06/2024 16:57 Discharge Plan Discharge Chief Complaint: Fever Clinical Impression: Acute febrile illness, Upper respiratory infection, Cough Patient Disposition: Home, Self-Care Time of Disposition Decision: 17:24 Condition: Good Prescriptions / Home Meds: New dexamethasone 4 mg tablet 4 mg PO BID 5 Days Qty: 10 0RF kbrwytwmacnhflo-[id number] [Bromfed DM] 2-30-10 mg/5 mL syrup 10 ml PO Q6H PRN (Reason: cold symptoms) Qty: 200 0RF ondansetron 4 mg tablet,disintegrating 4 mg PO Q6H PRN (Reason: nausea and vomiting) Qty: 12 0RF No Action cetirizine [24Hour Allergy] 10 mg tablet 5 mg PO DAILY PRN (Reason: allergy symptoms) methocarbamol 750 mg tablet 750 mg PO Q8H PRN (Reason: pain) montelukast 10 mg tablet 10 mg PO DAILY Print Language: Vietnamese Instructions: Fever in Adults (ED), Upper Respiratory Infection (ED) Referrals: ALETHEA GARCIA [Primary Care Provider] - 1 week
[2024-10-06] MEDS: IBUPROFEN 600 MG TABLET PO (15:58)
[2024-10-06] MEDS: ACETAMINOPHEN 325 MG TABLET 650 MG PO (15:58)
[2024-10-06] MEDS: ONDANSETRON 4 MG RAPDIS TABLET SL (16:02)
[2024-10-06 16:11] LABS: Influenza Virus A Antigen Negative; Influenza Virus B Antigen Negative; Internal Control Within Normal Limits; SARS-CoV-2 Ag NEGATIVE (NEGATIVE); Strep A Antigen Screen Negative
--- OUTSIDE RECORDS SUMMARY | 2024-10-06 16:33 | XMS_ITS | CCD ---
Author Organization [facility] [place] Inform ion Partnership [facility] Care Team Providers Care Radio News Writer Name Role Phone Bridgett Bradley Unavailable JOSE, DR CLAIRE Primary Care Unavailable PAY, DR BAUGH Consulting Unavailable PAY, DR BAUGH Admitting Unavailable PAY, DR BAUGH Attending Unavailable Ozzy Garcia MD Primary Care Provider Pedro Duvall Primary Care Physician [phone] Kisha Tang Attending Unavailable Ozzy Garcia MD Primary Care Provider OZZY GARCIA Attending Unavailable OZZY GARCIA Attending Unavailable SOURAV GOSS Attending Unavailable OZZY GARCIA Attending Unavailable Kisha Tang Attending Unavailable Allergies Allergy Classification Reported Allergen(s) Allergy Type Date of Onset Reaction(s) Facility (1 source) Clarithromycin Drug Allergy stomach issues severe [facility] Other (1 source) Clarithromycin Drug Allergy 03-22-20 16 [facility] Repository (5 sources) Clarithromycin Allergy to substance 12-25-19 22 Shortness of breath [facility] (2 sources) No Known Medication Allergies; Translations: [No Known Medication Allergies] Propensity to adverse reactions (disorder) [facility] Repository Medications Current Medications Medication Drug Class(es) Dates Sig (Normalized) Sig (Original) Budesonide / formoterol (1 source) Corticosteroid, beta2-Adrenergic Agonist Symbicort Active Capmist DM (1 source) Capmist DM Activ e cetirizine hydrochloride 10 mg oral tablet (6 sources) Histamine-1 Receptor Antagonist take 1 tablet by mouth in the morning cetirizine (ZyrTEC ALLERGY) 10 MG tablet Take 10 mg by mouth in the morning. Active Zyrtec Active [id number] 0.3 ml EPINEPHrine 1 mg/ml auto-injector (7 sources) alpha-Adrenergic Agonist, beta-Adrenergic Agonist, Catecholamine Start: 01-19-2024 End: 01-18-2025 EPINEPHrine (Auvi-Q) 0.3 MG/0.3ML injection syringe Indications: Allergic rhinitis due to pollen, unspecified seasonality Inject 0.3 mL (0.3 mg) as directed 1 (one) time if needed for anaphylaxis (2 cartons please) for up to 365 doses Inject into upper leg. Call 911 after use. 4 each 01/19/2024 Active methocarbamol 750 mg oral tablet (3 sources) Muscle Relaxant Start: 09-21-2024 End: 10-05-2024 take 1 tablet by mouth in the morning, then take 1 tablet by mouth in the evening, then take 1 tablet by mouth at bedtime methocarbamol (Robaxin) 750 MG tablet Indications: Acute pain of left shoulder Take 1 tablet (750 mg) by mouth in the morning and 1 tablet (750 mg) in the evening and 1 tablet (750 mg) before bedtime. Do all this for 14 days. 42 tablet 09/21/2024 Active nabumetone 750 mg oral tablet (3 sources) Nonsteroidal Anti-inflammatory Drug Start: 09-21-2024 End: 10-21-2024 take 1 tablet by mouth in the morning nabumetone (Relafen) 750 MG tablet Indications: Cervical pain , Acute pain of left shoulder Take 1 tablet (750 mg) by mouth in the morning and 1 tablet (750 mg) before bedtime. 60 tablet 09/21/2024 10/21/2024 Active naproxen 250 mg oral tablet (3 sources) Nonsteroidal Anti-inflammatory Drug take 1 tablet by mouth twice daily as needed for pain naproxen (Naprosyn) 250 MG tablet Take 250 mg by mouth 2 (two) times a day as needed for mild pain Active ondansetron 4 mg oral tablet (1 source) Serotonin-3 Receptor Antagonist Start: 10-16-2021 take 1 tablet by mouth every eight hours as needed Ondansetron HCl 4 MG 1 tablet Orally every 8 hours as needed for 5 days Oct, Active predniSONE 10 mg oral tablet (6 sources) Start: 02-12-2024 End: 09-21-2024 predniSONE (Deltasone) 10 MG tablet Indications: Cervical pain , Acute pain of left shoulder Every 2 day tapering dose; 5,5,4,4,3,3,2,2,1, 1,0.5,0.5 31 tablet 09/21/2024 Active Completed/Discontinued Medications Medication Drug Class(es) Dates Sig (Normalized) Sig (Original) Albuterol (1 source) beta2-Adrenergic Agonist Albuterol Sulfate (2.5 MG/ 3 ML) Not-Taking azelastine hydrochloride 0.137 mg/actuat metered dose nasal spray (1 source) Histamine-1 Receptor Antagonist take 1 puff(s) nasal route twice daily Azelastine HCl 137 MCG/SPRAY 1 puff in each nostril Nasally Twice a day Not-Taking famotidine 20 mg oral tablet (3 sources) Histamine-2 Receptor Antagonist Start: 12-10-2023 End: 09-21-2024 take 1 tablet by mouth in the morning famotidine (Pepcid) 20 MG tablet Indications: Dyspepsia Take 1 tablet (20 mg) by mouth in the morning and 1 tablet (20 mg) before bedtime. 180 tablet 12/10/2023 09/21/2024 Discontinued (Therapy completed) hydrOXYzine hydrochloride 25 mg oral tablet (3 sources) Antihistamine Start: 01-20-2024 End: 09-21-2024 take 1 tablet by mouth three times daily as needed for anxiety hydrOXYzine HCl (Atarax) 25 MG tablet Indications: Generalized anxiety disorder (CMS/HCC) Take 1 tablet (25 mg) by mouth 3 (three) times a day as needed for anxiety 90 tablet 01/20/2024 09/21/2024 Discontinued (Therapy completed) Ipratropium (1 source) Anticholinergic Ipratropium Heth Not-Taking sucralfate 1000 mg oral tablet (4 sources) Aluminum Complex Start: 04-28-2023 End: 09-21-2024 sucralfate (Carafate) 1 g tablet Indications: Dyspepsia Dissolve 1 tablet in 2 oz water. Take 30 minutes before meals 3 times daily and at bedtime 120 tablet 04/28/2023 09/21/2024 Discontinued (Therapy completed) Problems Active Problems Problem Classification Problem Date Documented Da te Episodic/Chronic Asthma (4 sources) Exacerbation of asthma; Translations: [Unspecified asthma with (acute) exacerbation] 12-05-2023 Chronic Chronic kidney disease (2 sources) Chronic kidney disease stage 2; Translations: [Chronic kidney disease, stage 2 (mild)] 09-21-2024 Chronic Esophageal disorders (1 source) Acid reflux 09-15-2024 Chronic Nausea and vomiting (6 sources) Nausea; Translations: [Nausea] Onset: 10-16-2021 Resolved: 10-16-2021 Episodic Nonspecific chest pain (1 source) Chest pain; Translations: [Other chest pain] Onset: 09-15-2024 Episodic Other gastrointestinal disorders (1 source) Diarrhea, unspecified; Translations: [DIARRHEA UNSPECIFIED] Onset: 10-08-2022 Episodic Other non-traumatic joint disorders (2 sources) Pain in left shoulder; Translations: [Pain in joint, shoulder region] 09-21-2024 Episodic Other upper respiratory disease (1 source) Seasonal allergic rhinitis; Translations: [Other seasonal allergic rhinitis] 12-05-2023 Chronic Other upper respiratory disease (4 sources) Allergic rhinitis due to animal hair and dander; Translations: [Allergic rhinitis due to animal (cat) (dog) hair and dander] Onset: 04-12-2024 04-12-2024 Chronic Other upper respiratory infections (1 source) Acute pharyngitis, unspecified; Translations: [Acute pharyngitis] 12-05-2023 Episodic Screening and history of mental health and substance abuse codes (1 source) Personal history of nicotine dependence; Translations: [PERSONAL HISTORY OF NICOTINE DEPEND] Onset: 10-08-2022 Episodic Spondylosis; intervertebral disc disorders; other back problems (4 sources) Neck pain; Translations: [Cervicalgia] 09-21-2024 Episodic Past or Other Problems Problem Classification Problem Date Documented Da te Episodic/Chronic Abdominal pain (5 sources) Indigestion; Translations: [Epigastric pain] Onset: 04-28-2023 04-28-2023 Episodic Conditions associated with dizziness or vertigo (5 sources) Benign paroxysmal positional vertigo; Translations: [Benign paroxysmal vertigo, left ear] Onset: 01-24-2023 01-24-2023 Episodic Intestinal infection (1 source) Viral intestinal infection, unspecified Onset: 10-16-2021 Resolved: 10-16-2021 Episodic Urinary tract infections (5 sources) Pyelonephritis; Translations: [Tubulo-interstitia l nephritis, not specified as acute or chronic] Onset: 05-01-2023 05-01-2023 Episodic Results Test Name Value Interpretation Reference Range Facility [facility] 09-15-2024 Anion gap [Moles/Vol] 13 mmol/L Normal 6-16 [facility] Comment on above: Performed By: #### 2 [id number] #### [facility] [address] [place] [address] Calcium [Mass/Vol] 9.6 mg/dL Normal 8.9-11.1 [facility] Comment on above: Performed By: #### 2 [id number] #### [facility] [address] [place] [address] Chloride [Moles/Vol] 104 mmol/L Normal 101-111 [facility] Comment on above: Performed By: #### 2 [id number] #### [facility] [address] [place] [address] CO2 [Moles/Vol] 25 mmol/L Normal 21-31 [facility] Comment on above: Performed By: #### 2 [id number] #### [facility] [address] [place] [address] Creatinine [Mass/Vol] 1.1 mg/dL Normal 0.5-1.3 [facility] Comment on above: Performed By: #### 2 [id number] #### [facility] [address] [place] [address] Glucose [Mass/Vol] 108 mg/dL Normal 55-199 [facility] Comment on above: Performed By: #### 2 [id number] #### [facility] [address] [place] [address] Potassium [Moles/Vol] 3.8 mmol/L Normal 3.5-5.3 [facility] Comment on above: Performed By: #### 2 [id number] #### [facility] [address] [place] [address] Sodium [Moles/Vol] 138 mmol/L Normal 135-145 [facility] Comment on above: Performed By: #### 2 [id number] #### [facility] [address] [place] [address] Urea nitrogen [Mass/Vol] 14 mg/dL Normal 5-21 [facility] Comment on above: Performed By: #### 2 [id number] #### [facility] [address] [place] [address] Urea nitrogen/Creatinine [Mass ratio] 13 No Units Normal 10-20 [facility] Comment on above: Performed By: #### 2 [id number] #### [facility] [address] [place] [address] CBC w/ Auto Diffon 5 Basophils/100 WBC (Bld) 0.5 % Normal 0.0-2.0 [facility] Comment on above: Performed By: #### 2 [id number] #### [facility] [address] [place] [address] Basophils/Leukocytes Auto (Bld) [Pure # fraction] 0.0 E9/L Normal 0.0-0.2 [facility] Comment on above: Performed By: #### 2 [id number] #### [facility] [address] [place] [address] Eosinophils (Bld) [#/Vol] 0.3 E9/L Normal 0.0-0.5 [facility] Comment on above: Performed By: #### 2 [id number] #### [facility] [address] [place] [address] Eosinophils/100 WBC (Bld) 4.2 % Normal 0.0-8.0 [facility] Comment on above: Performed By: #### 2 [id number] #### [facility] [address] [place] [address] Erythrocyte distribution width (RBC) [Ratio] 13.4 % Normal 10.9-14.2 [facility] Comment on above: Performed By: #### 2 [id number] #### [facility] [address] [place] [address] Hematocrit (Bld) [Volume fraction] 48.0 % Normal 37.7-49.0 [facility] Comment on above: Performed By: #### 2 [id number] #### [facility] [address] [place] [address] Hemoglobin (Bld) [Mass/Vol] 16.2 g/dL Normal 13.5-17.5 [facility] Comment on above: Performed By: #### 2 [id number] #### [facility] [address] [place] [address] Lymphocytes (Bld) [#/Vol] 2.3 E9/L Normal 1.0-4.0 [facility] Comment on above: Performed By: #### 2 [id number] #### [facility] [address] [place] [address] Lymphocytes/100 WBC (Bld) 31.5 % Normal 14.0-50.0 [facility] Comment on above: Performed By: #### 2 [id number] #### [facility] [address] [place] [address] MCH (RBC) [Entitic mass] 29.5 pg Normal 27.0-34.0 [facility] Comment on above: Performed By: #### 2 [id number] #### [facility] [address] [place] [address] MCHC (RBC) [Mass/Vol] 33.8 g/dL Normal 31.4-36.0 [facility] Comment on above: Performed By: #### 2 [id number] #### [facility] [address] [place] [address] MCV (RBC) [Entitic vol] 87.3 fL Normal 80.0-100.0 [facility] Comment on above: Performed By: #### 2 [id number] #### [facility] [address] [place] [address] Monocytes (Bld) [#/Vol] 0.8 E9/L Normal 0.2-1.0 [facility] Comment on above: Performed By: #### 2 [id number] #### [facility] [address] [place] [address] Neutrophils (Bld) [#/Vol] 3.9 E9/L Normal 2.0-7.5 [facility] Comment on above: Performed By: #### 2 [id number] #### [facility] [address] [place] [address] Neutrophils/100 WBC (Bld) 53.2 % Normal 36.0-75.0 [facility] Comment on above: Performed By: #### 2 [id number] #### [facility] [address] [place] [address] Platelet mean volume (Bld) [Entitic vol] 7.0 fL Normal 6.4-10.8 [facility] Comment on above: Performed By: #### 2 [id number] #### [facility] [address] [place] [address] Platelets (Bld) [#/Vol] 188.0 E9/L Normal 150.0-500.0 [facility] Comment on above: Performed By: #### 2 [id number] #### [facility] [address] [place] [address] RBC (Bld) [#/Vol] 5.5 E12/L Normal 4.3-5.9 [facility] Comment on above: Performed By: #### 2 [id number] #### [facility] [address] [place] [address] WBC corrected for nucl RBC Auto (Bld) [#/Vol] 7.4 E9/L Normal 4.0-11.0 [facility] Comment on above: Performed By: #### 2 [id number] #### [facility] [address] [place] [address] CHEMISTRYOrdered By: SYSTEM SYSTEM on 09-15-2024 Anion gap [Moles/Vol] 13 mmol/L Normal 6 - 16 mEq/L R emisol Chem Calcium [Mass/Vol] 9.6 mg/dL Normal 8.9 - 11. 1 mg/dL [facility] Chloride [Moles/Vol] 104 mmol/L Normal 101 - 1 11 mmol/L [facility] CO2 [Moles/Vol] 25 mmol/L Normal 21 - 31 mmol/L [facility] Creatinine [Mass/Vol] 1.1 mg/dL Normal 0.5 - 1.3 mg/dL [facility] eGFR 84 mL/min/1.73 m2 Normal >=59mL/min /1 .73 m2 [facility] Glucose [Mass/Vol] 108 mg/dL Normal 55 - 199 mg/dL [facility] Potassium [Moles/Vol] 3.8 mmol/L Normal 3.5 - 5.3 mmol/L [facility] Sodium [Moles/Vol] 138 mmol/L Normal 135 - 145 mmol/L [facility] Troponin HS pg/mL Low 15.90 - 38.40 pg/mL [facility] Comment on above: Interpretive Data: T he 95% CI (Confidence Interval) PPV (Positive Predictive Value) for myocardial infarction in females is 38 pg/mL, in males 51 pg/mL. The results should be used in conjunction with clinical conditions of myocardial infarction. (Access High Sensitivity Troponin I Instructions For Use, Mercedes Winters, April 2018) Urea nitrogen [Mass/Vol] 14 mg/dL Normal 5 - 21 mg/dL [facility] Urea nitrogen/Creatinine [Mass ratio] 13 mg/mg Normal 10 - 20 [facility] COAGULATIONOrdered By: Lisa Bobby on 09-15-2024 aPTT Coag (PPP) [Time] 32.5 s Normal 25.1 - 36.5 second(s) [facility] Comment on above: Interpretive Data: Lavern napier 15 days - 4 weeks 1 - 5 months 6 - 11 months 1 - 5 years 6 - 10 years 11 - 17 years PTT Mean: 35.4 (27.6-45.6) Mean: 33.5 (24.8-40.7) Mean: 32.4 (25.1-40.7) Mean: 31.6 (24.0-39.2) Mean: 31.6 (26.9-38.7) Mean: 31.0 (24.6-38.4) Pediatric Reference ranges were obtained from a study by Home Billingsley et al. prepared from 1437 samples obtained at 7 different centers using the same coagulation reagent and instrumentation as [facility]. Currently there are no coagulation studies available worldwide for children to 14 days, and no normal ranges. Heparin therapeutic range (represented by Anti-Factor Xa activity of 0.2 - 0.4 U/mL) corresponds to PTT of 56.6 - 109.0 sec. INR Coag (PPP) [Relative time] 0.96 {INR} Invalid Interpretation Code [facility] Comment on above: Interpretive Data: I NR results are specifically intended to assess patients stabilized on long-term Anticoagulation therapy suggested INR s Less Intensive Anticoagulation 2.0 3.0 Conventional Range 3.0 4.5 PT Coag (PPP) [Time] 10.7 s Normal 9.4 - 1 2.5 second(s) [facility] Comment on above: Interpretive Data: 1 5 days - 4 weeks 1 - 5 months 6 -11 months 1-5 years 6-10 years 11 -17 years Mean: 11.2 (9.5-12.6) Mean: 11.0 (9.7-12.8) Mean: 11.0 (9.8-13.0) Mean: 11.3 (9.9-13.4) Mean: 11.7 (10.0-14.6) Mean: 11.8 (10.0 - 14.1) Pediatric Reference ranges were obtained from a study by Home Billingsley et al. prepared from 1437 samples obtained at 7 different centers using the same coagulation reagent and instrumentation as [facility]. Currently there are no coagulation studies available worldwide for children to 14 days, and no normal ranges. ED Clinical Summaryon 2024 ED Clinical Summary ED Clinical Summary [place] [address] ED Clinical Summary Person Information [facility]: [facility] Age[facility] 43 Years : 1980 Sex: Male Language: Hungarian PCP: Pedro Duvall MD Marital Status: Single Phone: [phone] Visit Id: Visit Reason: Chest pain; CHEST PAIN Speciality: Acuity: 2 Enc Type: Emergency Med Service: Emergency Arrival: 09/15/2024 11:01:41 Discharge: 09/15/2024 12:08:42 LOS: 000 01:07 Checkin: 09/15/2024 11:01:41 Checkout: 09/15/2024 12:08:42 Dispo Type: Home (Routine DC) EVENTS: Event Name Event Status Request Date/Time Start Date/Time Complete Date/Time Arrive Complete 09/15/2024 11:01:41 09/15/2024 11:01:41 09/15/2024 11:01:41 Document Home Meds Request 09/15/2024 11:01:41 Triage Complete 09/15/2024 11:01:41 09/15/2024 11:10:08 09/15/2024 11:10:08 Bed Assign Complete 09/15/2024 11:04:04 09/15/2024 11:04:04 09/15/2024 11:04:04 Dr Exam Complete 09/15/2024 11:04:04 09/15/2024 11:04:16 09/15/2024 11:04:16 RN Exam Complete 09/15/2024 11:04:04 09/15/2024 11:17:30 09/15/2024 11:17:30 Registration Complete 09/15/2024 11:04:16 09/15/2024 11:43:46 09/15/2024 11:43:46 Dr Exam Complete 09/15/2024 11:04:42 09/15/2024 11:04:42 09/15/2024 11:04:42 Dr Exam Complete 09/15/2024 11:04:49 09/15/2024 11:04:49 09/15/2024 11:04:49 EKG Complete 09/15/2024 11:05:08 09/15/2024 11:08:19 Pending Labs Request 09/15/2024 11:09:28 Lab Complete 09/15/2024 11:09:28 09/15/2024 11:45:30 Patient Care Request 09/15/2024 11:09:28 X-Ray Complete 09/15/2024 11:09:28 09/15/2024 11:36:33 09/15/2024 11:52:01 Pending Labs Complete 09/15/2024 11:18:43 09/15/2024 11:18:43 09/15/2024 11:45:30 Lab Complete 09/15/2024 11:18:43 09/15/2024 11:18:43 09/15/2024 11:45:30 Pending Labs Complete 09/15/2024 11:22:26 09/15/2024 11:22:26 09/15/2024 11:22:27 Reg Complete Request 09/15/2024 11:43:46 Reg Bed Request Complete 09/15/2024 11:43:46 09/15/2024 11:43:46 09/15/2024 11:43:46 Wet Read Request 09/15/2024 11:52:01 Discharge Complete 09/15/2024 11:56:56 09/15/2024 12:08:46 09/15/2024 12:08:46 Transfer Complete 09/15/2024 12:08:46 09/15/2024 12:08:46 09/15/2024 12:08:46 ADDRESS: [address] [place] [phone] PHYS DOC NOTES: MEDICAL INFORMATION: Prescriptions Given: PATIENT EDUCATION INFORMATION: Instructions: Chest Wall Pain, Cath-[id number]; Nonspecific Chest Pain, Adult, [id number] Follow up: With: Address: When: Pedro Duvall [address], [place] [id number] Business (2) In 3 days 2024 Comments: Call Dr for diagnosis based follow up DIAGNOSIS: Non-cardiac chest pain Normal [facility] ED Note-Physicianon 09-15-19 ED Note-Physician ED Note-Physician Basic Information Time Seen: Kisha Tang M.D. 09/15/2024 11:04 Chief Complaint chest pain and shoulder pain. sent by dr duvall. History of Present Illness Patient, 43 year old male with history of Acid Reflux and Asthma presents to the ED today with Chest and Shoulder Pain. This pain started yesterday evening after the patient was working on top of a ladder. The pain is located anteriorly near his Pectoralis muscles but he started to worry as the pain spread down his arm and behind to his scapula. The pain has been constant in nature since onset. Naproxen was taken at 10 am which did not resolve his symptoms. Patient has had prior chest pain but this could always be attributed to a left rib being out of place. mentions when she saw the patient this morning he was in pain and anxious. A decision was made to come get be evaluated. Mother age 69, had a CABG done 2 years ago. Risk Review of Systems No other aggravating or relieving factors no other associated symptoms no other prior treatments or complaints. Family: Reviewed and noncontributory Social: lives at home Review of systems negative unless otherwise specified in the HPI. Physical Exam Vitals & Measurements T: 36.8 ???C(Oral) HR: 70(Peripheral) RR: 18 BP: 131/86 SpO2: 99% HT: 185.42 cm WT: 95.4 kg BMI: 27.75 General: alert, no acute distress Skin: warm, dry Head: no trauma, normocephalic Neck: Trachea midline, no adenopathy, no tenderness Eye: normal conjunctiva, sclera clear Cardiovascular: regular rate and rhythm, normal peripheral perfusion Respiratory: Lungs CTA, respirations non labored Chest wall: no deformity. Tenderness upon palpation to Pectoralis muscle. Gastrointestinal: soft, non distended, no tenderness, no guarding. Back: Mild tenderness on scapula, Normal ROM, Normal alignment. Extremities: no deformity, no trauma Neurological: oriented x 4, LOC appropriate for age, CN II-XII intact, motor strength equal & normal bilaterally, sensation equal & normal bilaterally, speech normal Psychiatric: cooperative, affect appropriate for age, normal judgement, normal psychiatric thoughts. _ Medical Decision Making MEDICAL DECISION MAKING Number and Complexity of Problems Differential Diagnosis: [] [facility] Data External documents reviewed: [] My EKG interpretation: Reviewed My CT interpretation: [] My X-ray interpretation: Reviewed My Ultrasound interpretation: [] Decision rules/scores evaluated: Heart Score for Major Cardiac Event History: Example factors for history - pattern of chest pain, onset, duration, relation with exercise, stress or cold, localization, concominant symptoms. reaction to sublingual nitrates, [] Highly suspicious +2 [] Moderately suspicious +1 [x] Slightly suspicious 0 EKG: [] Significant ST-Depression +2 [] Non specific repolarization disturbance +1 [x] Normal 0 Age: [] >= 65 +2 [] 45-65 + 1 [x] <45 0 Risk Factors: (HLD, HTN, DM, Cigarette Smoking, Pos Family Hx, Obesity) [] >3 risk factors or hx of atheroslerotic disease + 2 [x] 1-2 risk factors + 1 [] No risk factors known 0 Troponin: [] >= 3X normal + 2 [] 1-3X normal + 1 [x] <= Normal 0 [x] 0-3 Points 0.9 - 1.7% risk of major adverse cardiac event in 6 weeks [] 4-6 Points 12-16.6% risk of major adverse cardiac event in 6 weeks [] 7-10 Points 50-65% risk of major adverse cardiac event in 6 weeks [] 0-3 Points with 2 sets of negative cardiac markers <1% risk of major adverse cardiac event in 30 days. Discussed with: [] Treatment and Disposition ED Course: 43-year-old male reports emergency department with complaints of left-sided chest pain. Reports radiation down his left arm as well as left side of his chest. Reports that he was on a ladder yesterday, on his start hurting, worsening pain today. Exam of the patient here is rather benign with mild chest wall tenderness of the left upper lateral aspect chest wall. Due to concerns of, did do a full cardiac workup on the patient. Patient had a heart score of 1. Negative troponin. The patient was PERC negative and PE/DVT was essentially ruled out at this low risk patient. With the chest wall tenderness, appears to be more musculoskeletal type pain. Discussed with the patient was understanding of this. Discussed return precautions. Follow-up with your primary care provider in 3 to 5 days. If symptoms worsen, do not improve, or new symptoms arise please report back to emergency department for further evaluation. The patient was understanding and agreeable to plan moving forward. IKeith PA-C had a [id number] interaction with the patient. I personally performed a physical exam and medical decision making. I have verified the documentation by the student as accurately representing the information obtained. Shared de (more content not included)... Normal [facility] Comment on above: Result Comment: Elec tronically Signed By: Kisha Tang M.D.\.br\Date and Time Signed: 09/15/24 12:43 EST\.br\Electronically Co-Signed By: Keith Herron PA-C\.br\Date and Time Co-Signed: 09/15/24 12:35 EST ED Patient Summaryon 025 ED Patient Summary ED Patient Summary [address] [address] Patient Discharge Instructions Person Information Name: JULIO KULKARNI Age: 43 Years Arrival Date: 09/15/2024 11:01:41 Discharge Diagnosis: Non-cardiac chest pain Primary Care Physician: Pedro Duvall MD Provider Information Primary Provider: Kisha Tang M.D. Advanced Mail Order Biller:Keith Herron PA-C The exam and treatment you received in the Emergency Department were for an urgent problem and are not intended as complete care. It is important that you follow up with a doctor, nurse practitioner, or physician???s nurse practitioner physician assistant for ongoing care. If your symptoms become worse or you do not improve as expected and you are unable to reach your usual health care provider, you should return to the Emergency Department. We are available 24 hours a day. JULIO KULKARNI has been given the following list of patient education materials, prescriptions and follow-up instructions: Follow-up Instructions: With: Address: When: Pedro Duvall [address] [place] [id number] [facility] [email or web address] In 3 days 2024 Comments: Call Dr for diagnosis based follow up In the event that this physician does not participate in your insurance network, please consult with your insurance company to find a nearby participating provider. Patient Education Materials: Chest Wall Pain, Vays-tq-Kqll; Nonspecific Chest Pain, Adult, Tpeu-vl-Zfaf A MESSAGE TO ALL PATIENTS REGARDING OPIOIDS PRESCRIPTION OPIOIDS: WHAT YOU NEED TO KNOW Prescription opioids can be used to help relieve csmwzyys-xc-nyceju pain and are often prescribed following a surgery or injury, or for certain health conditions. These medications can be an important part of the treatment but also come with serious risks. It is important to work with your healthcare provider to make sure you are getting the safest, most effective care. WHAT ARE THE RISKS AND SIDE EFFECTS OF OPIOID USE? Prescription opioids carry serious risks of addiction and overdose, especially with prolonged use. An opioid overdose, often marked by slowed breathing, can cause sudden . The use of prescription opioids can have a number of side effects as well, even when taken as directed: ??? Tolerance???meaning you might need to take more of the medication for the same pain relief ??? Physical dependence???meaning you have symptoms of withdrawal when a medication is stopped ??? Increased sensitivity to pain ??? Constipation ??? Nausea, vomiting, and dry mouth ??? Sleepiness and dizziness ??? Confusion ??? Depression ??? Low levels of testosterone that can result in lower sex drive, energy, and strength ??? Itching and sweating RISKS ARE GREATER WITH: ??? History of drug misuse, substance use disorder, or overdose ??? Mental health conditions (such as depression or anxiety) ??? Sleep apnea ??? Older age (65 years and older) ??? Avoid alcohol while taking prescription opioids. Also, unless specifically advised by your health care provider, medications to avoid include: ??? Benzodiazepines (such as Xanax or Valium) ??? Muscle relaxants (such as Soma or Flexeril) ??? Hypnotics (such as Ambien or Lunesta) ??? Other prescription opioids KNOW YOUR OPTIONS Talk to your health care provider about ways to manage your pain that don???t involve prescription opioids. Some of these options may actually work better and have fewer risks and side effects. Options may include: ??? Pain relievers such as acetaminophen, ibuprofen, and naproxen ??? Some medication that are also used for depression or seizures ??? Physical therapy and exercise ??? Cognitive behavioral therapy, a psychological, goal-directed approach, in which patients learn how to modify physical, behavioral, and emotional triggers of pain and stress. IF YOU ARE PRESCRIBED OPIOIDS FOR PAIN: ??? Never take opioids in greater amounts or more often than prescribed. ??? Follow up with your primary health care provider. o Work together to create a plan on how to manage your pain. o Talk about ways to help manage your pain that don???t involve prescription opioids. o Talk about any and all concerns and side effects. ??? Help prevent misuse and abuse o Never sell or share prescription opioids. o Never use another person???s prescription opioids. ??? Store prescription opioids in a secure place and out of reach of others (this may include visitors, children, friends, and family). ??? Safely dispose of unused prescription opioids: Find your community drug take-back program or your pharmacy mail-back program, or flush them down the toilet, following guidance from the Food and Drug Administration (www.fda.gov/Drugs/R esourcesForYou). ??? Visit www.cdc.gov/drugover dose to learn about the risks of opioids abuse and o (more content not included)... Normal [facility] HEMATOLOGYOrdered By: SYSTEM SYSTEM on 09-15-2024 Basophils/100 WBC (Bld) 0.5 % Normal 0.0 - 2.0 % [facility]e Basophils/Leukocytes Auto (Bld) [Pure # fraction] 0.0 E9/L Normal 0.0 - 0.2 E9/L [facility] Eosinophils (Bld) [#/Vol] 0.3 E9/L Normal 0.0 - 0.5 E9/L [facility] Eosinophils/100 WBC (Bld) 4.2 % Normal 0.0 - 8.0 % [facility] Erythrocyte distribution width (RBC) [Ratio] 13.4 % Normal 10.9 - 14.2 % [facility] Hematocrit (Bld) [Volume fraction] 48.0 % Normal 37.7 - 49.0 % [facility] Hemoglobin (Bld) [Mass/Vol] 16.2 g/dL Normal 13.5 - 17.5 gm/dL [facility] Lymphocytes (Bld) [#/Vol] 2.3 E9/L Normal 1.0 - 4.0 E9/L [facility] Lymphocytes/100 WBC (Bld) 31.5 % Normal 14.0 - 50.0 % [facility] MCH (RBC) [Entitic mass] 29.5 pg Normal 27.0 - 34.0 pg [facility]e MCHC (RBC) [Mass/Vol] 33.8 g/dL Normal 31.4 - 36.0 gm/dL [facility] MCV (RBC) [Entitic vol] 87.3 fL Normal 80.0 - 100.0 fL [facility] Monocytes (Bld) [#/Vol] 0.8 E9/L Normal 0.2 - 1.0 E9/L [facility]e Monocytes/100 WBC (Bld) 10.6 % Normal 4.0 - 14.0 % [facility] Neutrophils (Bld) [#/Vol] 3.9 E9/L Normal 2.0 - 7.5 E9/L [facility] Neutrophils/100 WBC (Bld) 53.2 % Normal 36.0 - 75.0 % [facility] Platelet mean volume (Bld) [Entitic vol] 7.0 fL Normal 6.4 - 10.8 fL [facility] Platelets (Bld) [#/Vol] 188.0 E9/L Normal 150.0 - 500.0 E9/L [facility] RBC (Bld) [#/Vol] 5.5 E12/L Normal 4.3 - 5.9 E12/L [facility] WBC corrected for nucl RBC Auto (Bld) [#/Vol] 7.4 E9/L Normal 4.0 - 11.0 E9/L [facility] PT & PTTon 09-15-2024 aPTT Coag (PPP) [Time] 32.5 second(s) Normal 25.1-36.5 [facility] Comment on above: Result Comment: Para meter 15 days - 4 weeks 1 - 5 months 6 - 11 months 1 - 5 years 6 - 10 years 11 - 17 years PTT Mean: 35.4 (27.6-45.6) Mean: 33.5 (24.8-40.7) Mean: 32.4 (25.1-40.7) Mean: 31.6 (24.0-39.2) Mean: 31.6 (26.9-38.7) Mean: 31.0 (24.6-38.4) Pediatric Reference ranges were obtained from a study by [employer], et al. prepared from 1437 samples obtained at 7 different centers using the same coagulation reagent and instrumentation as [facility]. Currently there are no coagulation studies available worldwide for children to 14 days, and no normal ranges. Heparin therapeutic range (represented by Anti-Factor Xa activity of 0.2 - 0.4 U/mL) corresponds to PTT of 56.6 - 109.0 sec. Performed By: #### 1 [id number] #### [facility] [address] [place] [address] INR Coag (PPP) [Relative time] 0.96 {INR} Invalid Interpretation Code [facility] Comment on above: Result Comment: INR results are specifically intended to assess patients stabilized on long-term Anticoagulation therapy suggested INR???s ???Less Intensive Anticoagulation??? 2.0 ??? 3.0 Conventional Range 3.0 ??? 4.5 Performed By: #### 1 [id number] #### [facility] [address] [place] [address] PT Coag (PPP) [Time] 10.7 second(s) Normal 9.4-12.5 [facility] Comment on above: Result Comment: 15 d ays - 4 weeks 1 - 5 months 6 -11 months 1- 5 years 6-10 years 11 -17 years Mean: 11.2 (9.5-12.6) Mean: 11.0 (9.7-12.8) Mean: 11.0 (9.8-13.0) Mean: 11.3 (9.9-13.4) Mean: 11.7 (10.0-14.6) Mean: 11.8 (10.0 - 14.1) Pediatric Reference ranges were obtained from a study by [employer]ley et al. prepared from 1437 samples obtained at 7 different centers using the same coagulation reagent and instrumentation as [facility]. Currently there are no coagulation studies available worldwide for children to 14 days, and no normal ranges. Performed By: #### 1 [id number] #### [facility] [address] [place] [address] Pre-Arrival Noteon 5 Pre-Arrival Note Pre-Arrival Note Pre-Arrival Summary Name: anna, Current Date: 09/15/2024 11:02:52 EST Gender: Male Date of : Age: 40s Pre-Arrival Type: EMS ETA: 09/15/2024 11:05:00 EST Primary Care Physician: Presenting Problem: lf arm pain, CP Pre-Arrival User: Keith Herron PA-C Referring Source: Pedro Duvall MD Location: [place] Completion Date/Time: 09/15/2024 10:35:00 [facility] Emergency Department Pre-Hospital Report Form Vital Signs: Pre-Hospital Report: Treatment in Route: Response to Treatment: Misc. Issues: Normal [facility] Troponin 0 Hr.on 09-15-2024 Troponin HS <2.30 Low 15.90-38.40 [facility] Comment on above: Result Comment: The 95% CI (Confidence Interval) PPV (Positive Predictive Value) for myocardial infarction in females is 38 pg/mL, in males 51 pg/mL. The results should be used in conjunction with clinical conditions of myocardial infarction. (Access High Sensitivity Troponin I Instructions For Use, Mercedes Marian, April 2018) Performed By: #### 1 [id number] #### [facility] [address] [place] [address] XR Chest Single Viewon 09-15 XR Chest Single View Exam Date/Time: 09/15/2024 11:52 EST Reason for Exam: Chest pain Report IMPRESSION: NO ACUTE CARDIOPULMONARY DISEASE. CLINICAL HISTORY: Chest pain COMPARISON: NONE. FINDINGS: Osseous structures intact. Cardiopericardial silhouette normal. Pulmonary vasculature normal. Lungs clear. Ordering Provider: Keith Herron FINAL REPORT Dictated: 09/15/2024 11:59 am Nathan Gregory MD Signed (Electronic Signature): 09/15/2024 11:59 am Signed by: Nathan Gregory MD Transcribed by: MINH Technologist: CC Technical Comments Radiation Dose: Ka,r in mGy = na DAP = na Normal [facility] eGFRon 09-15-2024 eGFR 84 mL/min/1.73 m2 Normal >=59 [facility] Comment on above: Performed By: #### 1 [id number] #### [facility] [address] [place] [address] CBC W MANUAL DIFFon 10-04-19 23 ATYPICAL LYMPH # Normal [facility] Comment on above: Performed By: #### C CHARLES #### [facility] [address] [place] [address] Dr. Rogelio Jeffery ATYPICAL LYMPH % Normal [facility] Comment on above: Performed By: #### C CHARLES #### [facility] [address] [place] [address] Dr. Rogelio Jeffery BAND # 0.1 103/ul Normal 0.0-0.3 [facility] Comment on above: Performed By: #### C CHARLES #### [facility] [address] [place] [address] Dr. Rogelio Jeffery BAND % 1 % Normal 0-5 [facility] Comment on above: Performed By: #### C CHARLES #### [facility] [address] [place] [address] Dr. Rogelio Jeffery BASOM # 0.00 103/ul Normal 0.00-0.10 [facility] Comment on above: Performed By: #### C CHARLES #### [facility] [address] [place] [address] Dr. Rogelio Jeffery BASOM % 0.0 % Critically low 0.2-2.0 [facility] Comment on above: Performed By: #### C CHARLES #### [facility] [address] [place] [address] Dr. Rogelio Jeffery BLAST # Normal [facility] Comment on above: Performed By: #### C CHARLES #### [facility] [address] [place] [address] Dr. Rogelio Jeffery BLAST % Normal [facility] Comment on above: Performed By: #### C CHARLES #### [facility] [address] [address] [address] Rogelio Jeffery CORRECTED WBC Normal 4.0-11.0 [facility] Comment on above: Performed By: #### C CHARLES #### [facility] [address] [place] [address] Dr. Rogelio Jeffery EOS # 0.00 103/ul Normal 0.00-0.70 [facility] Comment on above: Performed By: #### C CHARLES #### [facility] [address] [address] [address] Rogelio Jeffery EOS% 0.0 % Critically low 0.9-7.0 [facility] Comment on above: Performed By: #### C CHARLES #### [facility] [address] [place] [address] Dr. Rogelio Jeffery HCT 47.4 % Normal 42.0-54.0 [facility] Comment on above: Performed By: #### C CHARLES #### [facility] [address] [place] [address] Dr. Rogelio Jeffery HGB 16.0 g/dl Normal 14.0-18.0 [facility] Comment on above: Performed By: #### C CHARLES #### [facility] [address] [place] [address] Dr. Rogelio Jeffery LYMPHM # 0.43 103/ul Critically low 1.20-3.80 [facility] Comment on above: Performed By: #### C CHARLES #### [facility] [address] [place] [address] Dr. Rogelio Jeffery LYMPHM% 5.0 % Critically low 20.5-60.[address] [facility] Comment on above: Performed By: #### C CHARLES #### [facility] [address] [place] [address] Dr. Rogelio Jeffery MCH 29.0 pg Normal 25.9-34.0 [facility] Comment on above: Performed By: #### C CHARLES #### [facility] [address] [place] [address] Dr. Rogelio Jeffery MCHC 33.8 g/dl Normal 29.9-35.2 [facility] Comment on above: Performed By: #### C BCMAN #### [facility] [address] [place] [address] Dr. Rogelio Jeffery MCV 85.9 fL Normal 80.0-94.0 [facility] Comment on above: Performed By: #### C CHARLES #### [facility] [address] [place] [address] Dr. Rogelio Jeffery METAMYELOCYTE # Normal [facility] Comment on above: Performed By: #### C CHARLES #### [facility] [address] [place] [address] Dr. Rogelio Jeffery METAMYELOCYTE % Normal [facility] Comment on above: Performed By: #### C CHARLES #### [facility] [address] [place] [address] Dr. Rogelio Jeffery MONOM# 0.43 103/ul Normal 0.30-0.80 [facility] Comment on above: Performed By: #### C CHARLES #### [facility] [address] [place] [address] Dr. Rogelio Jeffery MONOM% 5.0 % Normal 1.7-12.0 [facility] Comment on above: Performed By: #### C CHARLES #### [facility] [address] [place] [address] Dr. Rogelio Jeffery MPV 8.9 fL Critically low 9.5-13.5 [facility] Comment on above: Performed By: #### C CHARLES #### [facility] [address] [place] [address] Dr. Rogelio Jeffery MYELOCYTE # Normal [facility] Comment on above: Performed By: #### C CHARLES #### [facility] [address] [place] [address] Dr. Rogelio Jeffery MYELOCYTE % Normal [facility] Comment on above: Performed By: #### C CHARLES #### [facility] [address] [place] [address] Dr. Rogelio Jeffery NRBC Normal [facility] Comment on above: Performed By: #### C JENNIFERMAN #### [facility] [address] [address] [address] Rogelio Jeffery PLT 157 103/ul Normal 150-450 [facility] Comment on above: Performed By: #### Wiliam SOTO #### [facility] [address] [place] [address] Dr. Rogelio Jeffery RBC 5.52 106/ul Normal 4.70-6.10 [facility] Comment on above: Performed By: #### Wiliam SOTO #### [facility] [address] [place] [address] Dr. Rogelio Jeffery RDW 12.4 % Normal 11.0-15.0 [facility] Comment on above: Performed By: #### Wiliam SOTO #### [facility] [address] [place] [address] Dr. Rogelio Jeffery SEG # 7.65 103/ul Critically high 1.40-6.50 [facility] Comment on above: Performed By: #### Wiliam SOTO #### [facility] [address] [place] [address] Dr. Rogelio Jeffery SEG % 89.0 % Critically high 43.0-75.0 [facility] Comment on above: Performed By: #### Wiliam SOTO #### [facility] [address] [place] [address] Dr. Rogelio Jeffery WBC 8.6 103/ul Normal 4.0-11.0 [facility] Comment on above: Performed By: #### Wiliam SOTO #### [facility] [address] [place] [address] Dr. Rogelio Jeffery ER URINE PROFILEon 3 Bilirubin Ql (U) Negative Normal NEGATIVE [facility] Comment on above: Performed By: #### FRANK HENDRICKS #### [facility] [address] [place] [address] Dr. Rogelio Jeffery Clarity (U) CLEAR Normal CLEAR [facility] Comment on above: Performed By: #### FRANK HENDRICKS #### [facility] [address] [place] [address] Dr. Rogelio Jeffery Color (U) LT. YELLOW Normal YELLOW [facility] Comment on above: Performed By: #### Miryam DE SOUZA UMICRO #### [facility] [address] [place] [address] Dr. Rogelio JACKSON A micrscopic examination will be performed if indicated. Normal [facility] Comment on above: Performed By: #### Mriyam DE SOUZA UMICRO #### [facility] [address] [place] [address] Dr. Rogelio Jeffery Glucose Ql (U) Negative Normal NEGATIVE [facility] Comment on above: Performed By: #### Miryam DE SOUZA UMICRO #### [facility] [address] [place] [address] Dr. Rogelio Jeffery Hemoglobin Ql (U) SMALL Abnormal NEGATIVE [facility] Comment on above: Performed By: #### Miryam DE SOUZA UMICRO #### [facility] [address] [place] [address] Dr. Rogelio Jeffery Ketones Ql (U) Negative Normal NEGATIVE [facility] Comment on above: Performed By: #### Miryam DE SOUZA UMICRO #### [facility] [address] [place] [address] Dr. Rogelio Jeffery LEUKOCYTES Negative Normal NEGATIVE [facility] Comment on above: Performed By: #### Miryam DE SOUZA UMICRO #### [facility] [address] [place] [address] Dr. Rogelio Jeffery Nitrite Ql (U) Negative Normal NEGATIVE [facility] Comment on above: Performed By: #### Miryam DE SOUZA UMICRO #### [facility] [address] [place] [address] Dr. Rogelio Jeffery pH (U) 6.0 [pH] Normal 5-9 [facility] Comment on above: Performed By: #### Miryam DE SOUZA UMICRO #### [facility] [address] [place] [address] Dr. Rogelio Jeffery SPEC GRAVITY 1.020 Normal 1.005-<=1.02 5 [facility] Comment on above: Performed By: #### FRANK HENDRICKS #### [facility] [address] [place] [address] Dr. Rogelio Jeffery UA PROTEIN Negative Normal NEGATIVE/ TRACE [facility] Comment on above: Performed By: #### FRANK HENDRICKS #### [facility] [address] [place] [address] Dr. Rogelio Jeffery UR MICRO IND INDICATED Normal [facility] Comment on above: Performed By: #### FRANK HENDRICKS #### [facility] [address] [place] [address] Dr. Rogelio Jeffery Urobilinogen Qn (U) 0.2 {Shalini'U}/dL Normal 0.2 - 1. 0 [facility] Comment on above: Performed By: #### FRANK HENDRICKS #### [facility] [address] [place] [address] Dr. Rogelio Jeffery LIPASEon 10-04-2022 Lipase [Catalytic activity/Vol] 43.0 U/L Critically low 73.0-393.0 [facility] Comment on above: Performed By: #### C MP, LIPA #### [facility] [address] [place] [address] Dr. Rogelio Jeffery PROF 14(COMP METB)on 023 Albumin [Mass/Vol] 4.1 g/dL Normal 3.4-5.0 [facility] Comment on above: Performed By: #### C MP, LIPA #### [facility] [address] [place] [address] Dr. Rogelio Jeffery Albumin/Globulin [Mass ratio] 1.4 {ratio} Normal [facility] Comment on above: Performed By: #### C MP, LIPA #### [facility] [address] [place] [address] Dr. Rogelio Jeffery ALP [Catalytic activity/Vol] 64 U/L Normal 46-116 [facility] Comment on above: Performed By: #### C MP, LIPA #### [facility] [address] [place] [address] Dr. Rogelio Jeffery ALT [Catalytic activity/Vol] 42 U/L Normal 16-63 [facility] Comment on above: Performed By: #### C MP, LIPA #### [facility] [address] [place] [address] Dr. Rogelio Jeffery Anion gap [Moles/Vol] 13.2 mmol/L Normal [facility] Comment on above: Performed By: #### C MP, LIPA #### [facility] [address] [place] [address] Dr. Rogelio Jeffery AST [Catalytic activity/Vol] 24 U/L Normal 15-37 [facility] Comment on above: Performed By: #### C MP, LIPA #### [facility] [address] [place] [address] Dr. Rogelio Jeffery Bilirubin [Mass/Vol] 1.5 mg/dL Critically high 0.2-1.0 [facility] Comment on above: Performed By: #### C MP, LIPA #### [facility] [address] [place] [address] Dr. Rogelio Jeffery Calcium [Mass/Vol] 8.8 mg/dL Normal 8.5-10.1 [facility] Comment on above: Performed By: #### C MP, LIPA #### [facility] [address] [place] [address] Dr. Rogelio Jeffery Chloride [Moles/Vol] 104 mmol/L Normal 98-107 [facility] Comment on above: Performed By: #### C MP, LIPA #### [facility] [address] [place] [address] Dr. Rogelio Jeffery CO2 [Moles/Vol] 25.8 mmol/L Normal 21.0-32.0 [facility] Comment on above: Performed By: #### C MP, LIPA #### [facility] [address] [place] [address] Dr. Rogelio Jeffery Creatinine [Mass/Vol] 1.05 mg/dL Normal 0.70-1.30 [facility] Comment on above: Performed By: #### C MP, LIPA #### [facility] [address] [place] [address] Dr. Rogelio Jeffery EGFR-AF ALGERIAN >60 Normal >=60 [facility] Comment on above: Performed By: #### C MP, LIPA #### [facility] [address] [place] [address] Dr. Rogelio Jeffery EGFR-NON AF ALGERIAN >60 Normal >=60 [facility] Comment on above: Performed By: #### C MP, LIPA #### [facility] [address] [place] [address] Dr. Rogelio Jeffery Globulin (S) [Mass/Vol] 2.9 g/dL Normal [facility] Comment on above: Performed By: #### C MP, LIPA #### [facility] [address] [place] [address] Dr. Rogelio Jeffery Glucose [Mass/Vol] 132 mg/dL Critically high 74-106 [facility] Comment on above: Performed By: #### C MP, LIPA #### [facility] [address] [place] [address] Dr. Rogelio Jeffery Potassium [Moles/Vol] 4.0 mmol/L Normal 3.5-5.1 [facility] Comment on above: Performed By: #### C MP, LIPA #### [facility] [address] [place] [address] Dr. Rogelio Jeffery Protein [Mass/Vol] 7.0 g/dL Normal 6.4-8.2 [facility] Comment on above: Performed By: #### C MP, LIPA #### [facility] [address] [place] [address] Dr. Rogelio Jeffery Sodium [Moles/Vol] 139 mmol/L Normal 136-145 [facility] Comment on above: Performed By: #### C MP, LIPA #### [facility] [address] [place] [address] Dr. Rogelio Jeffery Urea nitrogen [Mass/Vol] 16.0 mg/dL Normal 7.0-18.0 [facility] [facility] Comment on above: Performed By: #### C MP, LIPA #### [facility] [address] [place] [address] Dr. Rogelio Jefefry Urea nitrogen/Creatinine [Mass ratio] 15.2 mg/mg Normal [facility] Comment on above: Performed By: #### C MPOMID #### [facility] [address] [place] [address] Dr. Rogelio Jeffery URINE MICROSCOPIC ONLYon BACTERIA NONE SEEN Normal NONE SEEN [facility] Comment on above: Performed By: #### E RUR, UMICRO #### [facility] [address] [place] [address] Dr. Rogelio Jeffery Bacteria identified Cx Nom (U) NOT INDICATED Normal [facility] Comment on above: Performed By: #### E RUR, UMICRO #### [facility] [address] [place] [address] Dr. Rogelio Jeffery CAST NONE SEEN Normal NONE SEEN [facility] Comment on above: Performed By: #### E RUR, UMICRO #### [facility] [address] [place] [address] Dr. Rogelio Jeffery Crystals LM Nom (Urine sed) NONE SEEN Normal NONE SEEN [facility] Comment on above: Performed By: #### E RUR, UMICRO #### [facility] [address] [place] [address] Dr. Rogelio Jeffery Epithelial cells LM Ql (Urine sed) RARE Normal NONE SEEN /RARE [facility] Comment on above: Performed By: #### E RUR, UMICRO #### [facility] [address] [place] [address] Dr. Rogelio Jeffery MUCOUS NONE SEEN Normal NONE SEEN [facility] Comment on above: Performed By: #### E RUR, UMICRO #### [facility] [address] [place] [address] Dr. Rogelio Jeffery RBC 2-5 Abnormal 0-2 [facility] Comment on above: Performed By: #### E RUR, UMICRO #### [facility] [address] [place] [address] Dr. Rogelio Jeffery WBC 0-2 Abnormal NONE SEEN [facility] Comment on above: Performed By: #### E RUR, UMICRO #### [facility] [address] [address] [address] Rogelio Jeffery XR Orbits for MRIon 08-21-20 XR Orbits for MRI CLINICAL HISTORY: History of metal to the right eye. COMPARISON: None. RESULT: No distinct radiopaque foreign body. No acute osseous findings. Paranasal sinuses grossly clear radiographically. IMPRESSION: No radiopaque foreign body. Report reported and signed by Cleveland Dorantes on 08/21/2022 1533 Normal [facility] [employer] [facility] [employer] [facility] 10-16-2021 FLUAV Ab CF (S) [Titer] Negative [employer] [facility] Other FLUBV Ab CF (S) [Titer] Negative [employer] [facility] Other Vital Signs Date Time Vital Sign Value Performing Clinician Facility 09-21-2024 10:53-0500 Body height 185.4 cm Ozzy Garcia MD Work Phone: [facility] 09-21-2024 10:53-0500 Body mass index (BMI) [Ratio] 27.71 kg/m2 Ozzy Garcia MD Work Phone: [facility] 09-21-2024 10:53-0500 Body weight 95.25 kg Ozzy Garcia MD Work Phone: [facility] 09-15-2024 12:06-0500 Diastolic blood pressure 87 mm[Hg] [facility] 09-15-2024 12:06-0500 Heart rate 67 /min [facility] 09-15-2024 12:06-0500 Mean blood pressure 97 mm[Hg] [facility] 09-15-2024 12:06-0500 Respiratory rate 12 /min [facility] 09-15-2024 12:06-0500 SaO2% (BldA) [Mass fraction] 98 % [facility] 09-15-2024 12:06-0500 Systolic blood pressure 118 mm[Hg] [facility] 09-15-2024 11:38-0500 Diastolic blood pressure 86 mm[Hg] [facility] 09-15-2024 11:38-0500 Heart rate 61 /min [facility] 09-15-2024 11:38-0500 Mean blood pressure 94 mm[Hg] [facility] 09-15-2024 11:38-0500 Respiratory rate 17 /min [facility] 09-15-2024 11:38-0500 SaO2% (BldA) [Mass fraction] 99 % [facility] 09-15-2024 11:38-0500 Systolic blood pressure 111 mm[Hg] [facility] 09-15-2024 11:04-0500 Body temperature 98.24 [degF] [facility] 09-15-2024 11:04-0500 Diastolic blood pressure 86 mm[Hg] [facility] 09-15-2024 11:04-0500 Heart rate 70 /min [facility] 09-15-2024 11:04-0500 Respiratory rate 18 /min [facility] 09-15-2024 11:04-0500 SaO2% (BldA) [Mass fraction] 99 % [facility] 09-15-2024 11:04-0500 Systolic blood pressure 131 mm[Hg] [facility] 12-05-2023 16:51-0400 Body height 185.42 cm [facility] 12-05-2023 16:51-0400 Body mass index (BMI) [Ratio] 28.3 kg/m2 [facility] 12-05-2023 16:51-0400 Body temperature 98.5 [degF] [facility] 12-05-2023 16:51-0400 Body weight 97.52 kg [facility] 12-05-2023 16:51-0400 Diastolic blood pressure 82 mm[Hg] [facility] 12-05-2023 16:51-0400 Heart rate 87 /min [facility] 12-05-2023 16:51-0400 Respiratory rate 18 /min [facility] 12-05-2023 16:51-0400 SaO2% (BldA) [Mass fraction] 97 % [facility] 12-05-2023 16:51-0400 Systolic blood pressure 125 mm[Hg] [facility] 10-16-2021 19:40-0500 Body height 185.42 cm Bridgett Bradley Other [employer] Other 10-16-2021 19:40-0500 Body mass index (BMI) [Ratio] 27.7 kg/m2 Bridgett Bradley Other [facility] Other 10-16-2021 19:40-0500 Body temperature 97.3 [degF] Bridgett Bradley Other [facility] Other 10-16-2021 19:40-0500 Body weight 95.26 kg Bridgett Bradley Other [facility] Other 10-16-2021 19:40-0500 Respiratory rate 18 /min Bridgett Bradley Other [employer] Other 10-16-2021 19:40-0500 SaO2% (BldA) [Mass fraction] 96 % Bridgett Bradley Other [employer] Other Encounters Encounter Date Encounter Type Care Provider Facility Start: 10-05-2024 End: 10-05-2024 Christina Garcia MD Work Phone: [facility] Start: 10-05-2024 End: 10-05-2024 Christina Garcia MD Work Phone: [facility] Start: 09-21-2024 End: 09-21-2024 Bamboo flowsheet Ozzy Garcia MD Work Phone: [facility] Start: 09-21-2024 End: 09-21-2024 Bamboo flowsheet Ozzy Garcia MD Work Phone: [facility] Start: 09-21-2024 End: 09-21-2024 Patient encounter procedure Ozzy Garcia MD Work Phone: [facility] Comment on above: Cervical pain (Prima ry Dx); Acute pain of left shoulder; Radiculopathy of arm; Stage 2 chronic kidney disease Start: 09-21-2024 End: 09-21-2024 ambulatory EDWARD J HEMEYER Not Available Start: 09-15-2024 End: 09-15-2024 Emergency department patient visit [facility] Start: 05-10-2024 End: 05-10-2024 ambulatory EDWARD HEMEYER Not Available Start: 04-12-2024 End: 04-12-2024 ambulatory EDWARD HEMEYER Not Available Start: 04-05-2024 End: 04-05-2024 ambulatory EDWARD HEMEYER Not Available Start: 03-15-2024 End: 03-15-2024 ambulatory EDWARD HEMEYER Not Available Start: 02-23-2024 End: 02-23-2024 ambulatory EDWARD HEMEYER Not Available Start: 01-20-2024 End: 01-20-2024 ambulatory EDWARD J HEMEYER Not Available Start: 01-19-2024 End: 01-19-2024 ambulatory SOURAV E RAMBASEK Not Available Start: 01-12-2024 End: 01-12-2024 ambulatory EDWARD HEMEYER Not Available Start: 01-05-2024 End: 01-05-2024 ambulatory EDWARD HEMEYER Not Available Start: 12-29-2023 End: 12-29-2023 ambulatory EDWARD HEMEYER Not Available Start: 12-15-2023 End: 12-15-2023 ambulatory EDWARD HEMEYER Not Available Start: 12-10-2023 End: 12-10-2023 ambulatory EDWARD J HEMEYER Not Available Start: 12-05-2023 End: 12-05-2023 ambulatory [facility] Work Phone: Start: 12-05-2023 End: 12-05-2023 Patient encounter procedure [facility] [place] Work Phone: Start: 12-01-2023 End: 12-01-2023 ambulatory EDWARD HEMEYER Not Available Start: 11-24-2023 End: 11-24-2023 ambulatory EDWARD HEMEYER Not Available Start: 11-17-2023 End: 11-17-2023 ambulatory EDWARD HEMEYER Not Available Start: 11-10-2023 End: 11-10-2023 ambulatory EDWARD HEMEYER Not Available Start: 11-03-2023 End: 11-03-2023 ambulatory EDWARD HEMEYER Not Available Start: 10-29-2023 End: 10-29-2023 ambulatory EDWARD HEMEYER Not Available Start: 10-20-2023 End: 10-20-2023 ambulatory EDWARD HEMEYER Not Available Start: 10-08-2023 End: 10-08-2023 ambulatory EDWARD HEMEYER Not Available Start: 10-06-2023 Telephone encounter Sourav claros MD Work Phone: [facility] Start: 10-04-2022 End: 10-04-[address] MUNROEAPPLE GARCIA Facility: Start: 10-16-2021 End: 10-16-2021 ambulatory Bridgett Bradley Other [facility] [employer] Other Start: 10-16-2021 Office outpatient vi sit 25 minutes Bridgett Bradley [facility] [place] Plan of Treatment Date Care Activity Detail Author Start: 11-15-2024 End: 11-15-2024 Patient encounter procedure 11/15/2024 4:00 PM EDT Office Visit [facility] [address] [place] [phone] Sourav Goss MD [address] [place] [address] [facility] Start: 09-21-2024 End: 09-21-2024 Patient encounter procedure 09/21/2024 11:00 AM EST Office Visit [facility] [address] [place] [phone] Ozzy Garcia MD [address] [place] [address] (Fax) Arrived [facility] Comment on above: Arrived Start: 05-02-2024 Influenza vaccination Influenza Vacc ine (#1) [facility] Start: 11-03-2023 End: 11-03-2023 Clinical Support 11/03/2023 4:00 PM EST Clinical Support [facility] [address] [place] [phone] [facility] Start: 10-27-2023 End: 10-27-2023 Clinical Support 10/27/2023 4:00 PM EST Clinical Support [facility] [address] [place] [phone] [facility] Start: 10-20-2023 End: 10-20-2023 Clinical Support 10/20/2023 4:00 PM EST Clinical Support [facility] [address] [place] [phone] [facility] Start: 10-08-2023 End: 10-08-2023 Clinical Support 10/08/2023 4:00 PM EST Clinical Support [facility] [address] [place] [phone] [facility] Start: 05-02-2023 Influenza vaccination Influenza Vacc ine (#1) [facility] Start: 1980 Screening for malign ant neoplasm of colon [facility] Immunizations Immunization Date Immunization Notes Care Provider Fa [facility] 07-12-2008 influenza, seasonal, injectable Ozzy Garcia MD Work Phone: [facility] 07-12-2008 influenza virus vacc ine, unspecified formulation Sourav Goss MD Work Phone: [facility] 07-23-2006 influenza, seasonal, injectable Ozzy Garcia MD Work Phone: [facility] Healthcare Payers Date Payer Category Payer Private Health Insurance [place] [address] [id number] 2024 Self-pay 2022 Unknown [employer] [id number] 2022-Present [address] [place] [address] [id number] 1979 Unknown [id number] 2.16.840.1.347419.3.579.2. 593 1979 Unknown [id number] 2.16.840.1.028839.3.579.2. 727 1979 Unknown [id number] 2.16.840.1.994381.3.579.2. 727 1979 Unknown [id number] 2.16.840.1.758861.3.579.2. 1259 1979 Unknown [id number] 2.16.840.1.210059.3.579.2. 9 1979 Unknown [id number] 2.16.840.1.727547.3.579.2. 9 1979 Unknown [id number] 2.16.840.1.689115.3.579.2. 1259 1979 Unknown [id number] 2.16.840.1.072849.3.579.2. 1258 1979 Unknown [id number] 2.16.840.1.991407.3.579.2. 1258 1979 Unknown [id number] 2.16.840.1.077420.3.579.2. 1258 1979 Unknown [id number] 2.16.840.1.739226.3.579.2. 1258 1979 Unknown [id number] 2.16.840.1.875704.3.579.2. 1258 1979 Unknown [id number] 2.16.840.1.423652.3.579.2. 1258 1979 Unknown [id number] 2.16.840.1.017407.3.579.2. 1258 1979 Unknown [id number] 2..840.1.968665.3.579.2. 1258 1979 Unknown [id number] 2.16.840.1.898771.3.579.2. 1258 1979 Unknown [id number] 2.16.840.1.683412.3.579.2. 1258 1979 Unknown [id number] 2.16.840.1.909126.3.579.2. 1258 1979 Unknown [id number] 2.16.840.1.117485.3.579.2. 1258 1979 Unknown [id number] 2.16.840.1.494208.3.579.2. 1258 1979 Unknown [id number] 2.16.840.1.401759.3.579.2. 1258 1979 Unknown [id number] 2.16.840.1.241082.3.579.2. 1258 1979 Unknown [id number] 2.16.840.1.449893.3.579.2. 1258 1979 Unknown [id number] 2.16.840.1.336303.3.579.2. 1259 1979 Unknown [id number] 2.16.840.1.167255.3.579.2. 1259 1979 Unknown [id number] 2.16.840.1.772947.3.579.2. 727 1959 Unknown [id number] 2.16.840.1.027026.19 Social History Date Type Detail Facility Unknown if ever smoked [employer] Other Start: 05-01-2023 End: 01-20-2024 Sex Assigned At [facility] Start: 04-28-2023 End: 12-05-2023 Tobacco smoking status [facility] Ex-smoker [facility] History of tobacco use Current smoker [facility] History of tobacco use Cigarette Smoker [facility] Start: 04-28-2023 Tobacco use and exposure Former smokeless tobacco user [facility] Start: 05-01-2023 End: 09-21-2024 Alcohol intake Lifetime non-drinker (finding) [facility] Start: 05-01-2023 End: 01-20-2024 History of Social function [facility] Start: 1980 Sex Assigned At Not on file [facility] Start: 1980 Sex Assigned At Male [facility] Tobacco smoking status No Smokin g Status Entered [facility] Do you belong to any clubs or organizations such as yazidism groups, unions, fraternal or athletic groups, or school groups? Yes [facility] Are you now , , , , never or living with a partner? [facility] How often to you hav e a drink containing alcohol? Never [facility] How many standard dr inks containing alcohol do you have on a typical day? Patient does not drink [facility] How hard is it for y ou to pay for the very basics like food, housing, medical care, and heating Not very hard [facility] Do you feel stress - tense, restless, nervous, or anxious, or unable to sleep at night because your mind is troubled all the time - these days [OSQ] To some extent [facility] (I/We) worried rhoda er (my/our) food would run out before (I/we) got money to buy more. Never true [facility] In the past 12 month s, was there a time when you were not able to pay the mortgage or rent on time? No [facility] Functional Status Date Assessment Result Facility 09-15-2024 Functional Status N/A [facility] Clinical Notes 09-01-2021 to 09-21-2024 Ozzy Garcia MD - 09/21/2024 11:00 AM EST Note Date & Type Note Facility 09-21-2024 History of Present illness Narrative Images from the original note were not included. Patient ID: Julio Kulkarni is a 44 y.o. male who presents for: His is with him today. Neck Pain: Patient who presents for evaluation of neck pain. Event that precipitated these symptoms: none known. Onset of symptoms was a few days ago, and have been unchanged since that time. Current symptoms are pain in neck, left shoulder, left arm (aching, pulsating, sharp, and throbbing in character; 7/10 in severity), stiffness in neck, shoulder and arm, and weakness in arm and hand . Patient denies numbness in hands and paresthesias in hands , But does have pain down in the forearms. Patient has had no prior neck problems. Previous treatments: chiropractor/manipulation and aleve and massage . He notes minimal improvement from these treatments. He does note that he was taking down an elevated train tract in his son's room. He used a ladder and did not have to look or reach upwards for any significant time. He did not feel any injury or strain at that time. He does intermittently get a little bit of pain in the 4th and 5th fingers of the left hand. He denies any specific weakness or dropping things. Review of Systems Constitutional: Negative for chills and fever. Respiratory: Negative for cough, shortness of breath and wheezing. Cardiovascular: Negative for chest pain and palpitations. Gastrointestinal: Negative for abdominal pain. Genitourinary: Negative for frequency and urgency. Musculoskeletal: Positive for neck pain. At the base of his Neck They did go to the emergency room mostly because it was left chest pain and into the arm without a known injury and they were concerned as areas a family history of cardiac disease. He was released from the emergency room with negative cardiac enzymes, a reportedly normal EKG, and sinus rhythm on his cardiac monitoring which to strips are reviewed today. They also brought a copy of the labs and these were also reviewed today. Objective The patient is pleasant and in no acute distress The patient has good eye contact and clear speech Just upon visualizing him when I entered into the room he had an obvious muscular skeletal change from how I remember him. His left shoulder and chest are rotated forward compared to the right. He does have forward shoulders but the left is significantly worse. There is also at least an inch if not 2 in difference between the high so the shoulder. He is keeping his arm specifically close to his chest wall except when asked to do something different. There is no specific evidence of swelling, bruising, erythema. The chest wall itself is nontender to palpation. The rest of the exam Pertains to the spine or the left side of his upper body. The spinous processes are nontender. There is bilateral paracervical hypertonicity the left considerably greater than the right and there is suboccipital tightness. With left side ways flexion he gets an increase in his arm pain and develops tingling in the distal forearm and down into the 4th and 5th fingers. The clavicle and AC joint are unremarkable. There is some mild tenderness to palpation over the lateral upper arm. Testing of the rotator cuff muscles is positive for pain with the empty can test. He has some minimal discomfort with abduction. Internal and external rotation on nontender. The elbow and wrist have full range of motion I did place his left arm in the syringe under position. He had a vague sense of discomfort near the shoulder in the anterior chest and some up inside the axilla. His pulse appear to decreased slightly but did not dissipate. He had no neurologic symptomatology. I did palpate into the axilla and did not find any masses or significant lymphadenopathy or tenderness. Visit Vitals Ht 6' 1 Wt 210 lb BMI 27.71 kg/m Smoking Status Former BSA 2.22 m Allergies Allergen Reactions Clarithromycin Shortness of breath Other Reaction(s): SOB, flushed, dizzy Current Outpatient Medications on File Prior to Visit Medication Sig Dispense Refill cetirizine (ZyrTEC ALLERGY) 10 MG tablet Take 10 mg by mouth in the morning. EPINEPHrine (Auvi-Q) 0.3 MG/0.3ML injection syringe Inject 0.3 mL (0.3 mg) as directed 1 (one) time if needed for anaphylaxis (2 cartons please) for up to 365 doses Inject into upper leg. Call 911 after use. 4 each 0 naproxen (Naprosyn) 250 MG tablet Take 250 mg by mouth 2 (two) times a day as needed for mild pain [DISCONTINUED] EPINEPHrine (Epipen) 0.3 MG/0.3ML injection syringe Inject 0.3 mL (0.3 mg) as directed if needed for anaphylaxis Call 911 after use. 2 each 1 [DISCONTINUED] famotidine (Pepcid) 20 MG tablet Take 1 tablet (20 mg) by mouth in the morning and 1 tablet (20 mg) before bedtime. 180 tablet 0 [DISCONTINUED] hydrOXYzine HCl (Atarax) 25 MG tablet Take 1 tablet (25 mg) by mouth 3 (three) times a day as needed for anxiety 90 tablet 0 [DISCONTINUED] predniSONE (Deltasone) 10 MG tablet Every 2 day tapering dose; 5,5,4,4,3,3,2,2,1,1,0.5,0.5 31 tablet 0 [DISCONTINUED] sucralfate (Carafate) 1 g tablet Dissolve 1 tablet in 2 oz water. Take 30 minutes before meals 3 times daily and at bedtime 120 tablet 0 No current facility-administered medications on file prior to visit. 1. Cervical pain (Primary) We discussed in detail that I really do not have a great explanation for what is going on here. There was no specific injury that acutely cause this. It seems to have settled in over several days. There are no red flag signs. We did have a discussion about a conservative trial of treatment to see if we can cut his pain and inflammation verses beginning diagnostic imaging and possible referral. It turns out that he is between jobs at this time and will be ensured again a proximally mid October. After discussion we have all mutually agreed for an Empiric trial of treatment. - predniSONE (Deltasone) 10 MG tablet; Every 2 day tapering dose; 5,5,4,4,3,3,2,2,1,1,0.5,0.5 Dispense: 31 tablet; Refill: 0 - nabumetone (Relafen) 750 MG tablet; Take 1 tablet (750 mg) by mouth in the morning and 1 tablet (750 mg) before bedtime. Dispense: 60 tablet; Refill: 0 2. Acute pain of left shoulder He does seem to have some spasm posteriorly in his upper back and shoulder region. His who is a massage therapist has given him several massages and indeed he had 1 earlier before this visit. We will go ahead and add a muscle relaxant for now. - predniSONE (Deltasone) 10 MG tablet; Every 2 day tapering dose; 5,5,4,4,3,3,2,2,1,1,0.5,0.5 Dispense: 31 tablet; Refill: 0 - nabumetone (Relafen) 750 MG tablet; Take 1 tablet (750 mg) by mouth in the morning and 1 tablet (750 mg) before bedtime. Dispense: 60 tablet; Refill: 0 - methocarbamol (Robaxin) 750 MG tablet; Take 1 tablet (750 mg) by mouth in the morning and 1 tablet (750 mg) in the evening and 1 tablet (750 mg) before bedtime. Do all this for 14 days. Dispense: 42 tablet; Refill: 0 3. Radiculopathy of arm I discussed with them that this could have several different origins. I doubt it systemic. It could be cervical for from thoracic outlet syndrome. It could just be that he has some arthritis and with all the spasm he is getting some neuropathy. They understand if he is not improved that we will go ahead and begin diagnostic imaging as soon as he is insured. 4. Stage 2 chronic kidney disease New, chronic problem noted on the laboratory work from the emergency room. I did review this with them and that this is rather mild. I did recommend he stay well hydrated. Once we will get him through this we will attempt to get him off of NSAIDs and may need further evaluation, repeat monitoring at a minimum. documented in this encounter [facility] 09-15-2024 Hospital Discharge instructions Patient Education 09/15/2024 12:08:47 Chest Wall Pain, [id number] Chest Wall Pain Chest wall pain is pain in or around the bones and muscles of your chest. Chest wall pain may be caused by: An injury. Coughing a lot. Using your chest and arm muscles too much. Sometimes, the cause may not be known. This pain may take a few weeks or longer to get better. Follow these instructions at home: Managing pain, stiffness, and swelling If told, put ice on the painful area: Put ice in a plastic bag. Place a towel between your skin and the bag. Leave the ice on for 20 minutes, 2 3 times a day. Activity Rest as told by your doctor. Avoid doing things that cause pain. This includes lifting heavy items. Ask your doctor what activities are safe for you. General instructions Take [id number] and prescription medicines only as told by your doctor. Do not use any products that contain nicotine or tobacco, such as cigarettes, e-cigarettes, and chewing tobacco. If you need help quitting, ask your doctor. Keep all follow-up visits as told by your doctor. This is important. Contact a doctor if: You have a fever. Your chest pain gets worse. You have new symptoms. Get help right away if: You feel sick to your stomach (nauseous) or you throw up (vomit). You feel sweaty or light-headed. You have a cough with mucus from your lungs (sputum) or you cough up blood. You are short of breath. These symptoms may be an emergency. Do not wait to see if the symptoms will go away. Get medical help right away. Call your local emergency services (911 in the [place] Do not drive yourself to the hospital. Summary Chest wall pain is pain in or around the bones and muscles of your chest. It may be treated with ice, rest, and medicines. Your condition may also get better if you avoid doing things that cause pain. Contact a doctor if you have a fever, chest pain that gets worse, or new symptoms. Get help right away if you feel light-headed or you get short of breath. These symptoms may be an emergency. This information is not intended to replace advice given to you by your health care provider. Make sure you discuss any questions you have with your health care provider. Document Revised: 08/11/2023 Document Reviewed: 08/11/2023 [employer] Patient Education 2023 [employer]. 09/15/2024 12:08:47 Nonspecific Chest Pain, Adult, [id number] Nonspecific Chest Pain Chest pain can be caused by many different conditions. Some causes of chest pain can be life-threatening. These will require treatment right away. Serious causes of chest pain include: Heart attack. A tear in the body's main blood vessel. Redness and swelling (inflammation) around your heart. Blood clot in your lungs. Other causes of chest pain may not be so serious. These include: Heartburn. Anxiety or stress. Damage to bones or muscles in your chest. Lung infections. Chest pain can feel like: Pain or discomfort in your chest. Crushing, pressure, aching, or squeezing pain. Burning or tingling. Dull or sharp pain that is worse when you move, cough, or take a deep breath. Pain or discomfort that is also felt in your back, neck, jaw, shoulder, or arm, or pain that spreads to any of these areas. It is hard to know whether your pain is caused by something that is serious or something that is not so serious. So it is important to see your doctor right away if you have chest pain. Follow these instructions at home: Medicines Take [id number] and prescription medicines only as told by your doctor. If you were prescribed an antibiotic medicine, take it as told by your doctor. Do not stop taking the antibiotic even if you start to feel better. Lifestyle Rest as told by your doctor. Do not use any products that contain nicotine or tobacco, such as cigarettes, e-cigarettes, and chewing tobacco. If you need help quitting, ask your doctor. Do not drink alcohol. Make lifestyle changes as told by your doctor. These may include: ?Getting regular exercise. Ask your doctor what activities are safe for you. ?Eating a heart-healthy diet. A diet and nutrition services worker (dietitian) can help you to learn healthy eating options. ?Staying at a healthy weight. ?Treating diabetes or high blood pressure, if needed. ?Lowering your stress. Activities such as yoga and relaxation techniques can help. General instructions Pay attention to any changes in your symptoms. Tell your doctor about them or any new symptoms. Avoid any activities that cause chest pain. Keep all follow-up visits as told by your doctor. This is important. You may need more testing if your chest pain does not go away. Contact a doctor if: Your chest pain does not go away. You feel depressed. You have a fever. Get help right away if: Your chest pain is worse. You have a cough that gets worse, or you cough up blood. You have very bad (severe) pain in your belly (abdomen). You pass out (faint). You have either of these for no clear reason: ?Sudden chest discomfort. ?Sudden discomfort in your arms, back, neck, or jaw. You have shortness of breath at any time. You suddenly start to sweat, or your skin gets clammy. You feel sick to your stomach (nauseous). You throw up (vomit). You suddenly feel lightheaded or dizzy. You feel very weak or tired. Your heart starts to beat fast, or it feels like it is skipping beats. These symptoms may be an emergency. Do not wait to see if the symptoms will go away. Get medical help right away. Call your local emergency services (911 in the [place] Do not drive yourself to the hospital. Summary Chest pain can be caused by many different conditions. The cause may be serious and need treatment right away. If you have chest pain, see your doctor right away. Follow your doctor's instructions for taking medicines and making lifestyle changes. Keep all follow-up visits as told by your doctor. This includes visits for any further testing if your chest pain does not go away. Be sure to know the signs that show that your condition has become worse. Get help right away if you have these symptoms. This information is not intended to replace advice given to you by your health care provider. Make sure you discuss any questions you have with your health care provider. Document Revised: 07/03/2023 Document Reviewed: 07/03/2023 [employer] Patient Education 2023 [employer]. Follow Up Care 09/15/2024 11:02:33 With:Pedro Duvall Address: [address] [place] [address]- Business (2) When:2024 11:56:52 Comments:Call Dr for diagnosis based follow up [facility] 09-15-2024 Evaluation + Plan note Extrac sade from: Title:ED Note Author:Jesenia Salvador III Date:09/15/24 Non-cardiac chest pain (R07. 89: Other chest pain) Orders: Basic Metabolic Panel CBC w/ Auto Diff ED Cardiac Monitoring eGFR Extra SST Tube Oxygen Saturation PT & PTT Saline Lock Insert Troponin 0 Hr. XR Chest Single View [facility] 01-15-2025 NoteED Patient Education Note Gastroenterology Nonspecific Chest Pain Chest pain can be caused by many different conditions. Some causes of chest pain can be life-threatening. These will require treatment right away. Serious causes of chest pain include: ??? Heart attack. ??? A tear in the body's main blood vessel. ??? Redness and swelling (inflammation) around your heart. ??? Blood clot in your lungs. Other causes of chest pain may not be so serious. These include: ??? Heartburn. ??? Anxiety or stress. ??? Damage to bones or muscles in your chest. ??? Lung infections. Chest pain can feel like: ??? Pain or discomfort in your chest. ??? Crushing, pressure, aching, or squeezing pain. ??? Burning or tingling. ??? Dull or sharp pain that is worse when you move, cough, or take a deep breath. ??? Pain or discomfort that is also felt in your back, neck, jaw, shoulder, or arm, or pain that spreads to any of these areas. It is hard to know whether your pain is caused by something that is serious or something that is not so serious. So it is important to see your doctor right away if you have chest pain. Follow these instructions at home: Medicines ??? Take bcqe-jao-sxpciwc and prescription medicines only as told by your doctor. ??? If you were prescribed an antibiotic medicine, take it as told by your doctor. Do not stop taking the antibiotic even if you start to feel better. Lifestyle ??? Rest as told by your doctor. ??? Do not use any products that contain nicotine or tobacco, such as cigarettes, e-cigarettes, andchewing tobacco. If you need help quitting, ask your doctor. ??? Do not drink alcohol. ??? Make lifestyle changes as told by your doctor. These may include: ? Getting regular exercise. Ask your doctor what activities are safe for you. ? Eating a heart-healthy diet. A diet and nutrition services worker (dietitian) can help you to learn healthy eating options. ? Staying at a healthy weight. ? Treating diabetes or high blood pressure, if needed. ? Lowering your stress. Activities such as yoga and relaxation techniques can help. General instructions ??? Pay attention to any changes in your symptoms. Tell your doctor about them or any new symptoms. ??? Avoid any activities that cause chest pain. ??? Keep all follow-up visits as told by your doctor. This is important. You may need more testing if your chest pain does not go away. Contact a doctor if: ??? Your chest pain does not go away. ??? You feel depressed. ??? You have a fever. Get help right away if: ??? Your chest pain is worse. ??? You have a cough that gets worse, or you cough up blood. ??? You have very bad (severe) pain in your belly (abdomen). ??? You pass out (faint). ??? You have either of these for no clear reason: ? Sudden chest discomfort. ? Sudden discomfort in your arms, back, neck, or jaw. ??? You have shortness of breath at any time. ??? You suddenly start to sweat, or your skin gets clammy. ??? You feel sick to your stomach (nauseous). ??? You throw up (vomit). ??? You suddenly feel lightheaded or dizzy. ??? You feel very weak or tired. ??? Your heart starts to beat fast, or it feels like it is skipping beats. These symptoms may be an emergency. Do not wait to see if the symptoms will go away. Get medical help right away. Call your local emergency services (911 in the [place] Do not drive yourself to the hospital. Summary ??? Chest pain can be caused by many different conditions. The cause may be serious and need treatment right away. If you have chest pain, see your doctor right away. ??? Follow your doctor's instructions for taking medicines and making lifestyle changes. ??? Keep all follow-up visits as told by your doctor. This includes visits for any further testing if your chest pain does not go away. ??? Be sure to know the signs that show that your condition has become worse. Get help right away if you have these symptoms. This information is not intended to replace advice given to you by your health care provider. Make sure you discuss any questions you have with your health care provider. Document Revised: 07/03/2023 Document Reviewed: 07/03/2023 [employer] Patient Education ? 2023 [employer] Orthopedics Chest Wall Pain Chest wall pain is pain in or around the bones and muscles of your chest. Chest wall pain may be caused by: ??? An injury. ??? Coughing a lot. ??? Using your chest and arm muscles too much. Sometimes, the cause may not be known. This pain may take a few weeks or longer to get better. Follow these instructions at home: Managing pain, stiffness, and swelling If told, put ice on the painful area: ??? Put ice in a plastic bag. ??? Place a towel between your skin and the bag. ??? Leave the ice on for 20 minutes, 2?3 times a day. Activity ??? Rest as told by your doctor. ??? Avoid doing things yariel (more content not included)...[facility]02-05-2024 Telephone encounter Note* Telephone Encounter - Martita Roach LPN - 10/06/2023 4:12 PM EST Spoke with Julio and confirmed his vials are still good. I scheduled him appointments for the next 4 weeks. [facility] [employer] Work Phone: [phone] Miscellaneous Notes* Telephone Encounter - Martita Roach LPN - 10/06/2023 4:12 PM EST Spoke with Julio and confirmed his vials are still good. I scheduled him appointments for the next 4 weeks. documented in this encounterHaw[facility] [id number] NoteHISTORY: Vertigo x several days PROCEDURE: Multiplanar, multisequence imaging including routine T1, T2 without contrast. FINDINGS: No worrisome intra- or extra-axial mass lesions, mass effect or hemorrhage identified. No evidence of major vessel ischemia is noted. Periventricular and subcortical white matter is normal without significant small vessel ischemic or demyelination changes. Ventricular size is normal for this age, and commensurate with the cerebral sulci. Normal signal flow void is present within the major cerebral vessels. Corpus callosum, reinaldo, midbrain sellar contents and suprasellar cistern are normal. The 7th and 8th cranial nerve complexes, internal auditory canals are unremarkable. Calvarium, mastoid air cells, paranasal sinuses and orbital contents are unremarkable. IMPRESSION: Normal brain MRI Report reported and signed by Víctor Lopez on 08/22/2022 0750[facility] [place] [facility] [id number] Evaluation note* Encounter Date Diagnosis Assessment Notes Treatment Notes Treatment Clinical Notes Oct, Nausea (ICD-10 - R11.0) Oct, Viral gastroenteriti s (ICD-10 - A08.4) Advised patient that Influenza A/B test was negative today. Advised patient that will tx as viral illness. Will send in rx of Ondansetron as directed. Supportive care as directed, increase fluids and rest, Tylenol/Motrin as directed, OTC cough/cold remedies as directed on packaging, cool mist humidifier, throat lozenges. Advance diet as tolerated, discussed BRAT diet. Discussed infection control practices such as good hand washing and mask wearing. Patient to follow up with PCP in 48 hours if sx persist or worsen despite treatment. Immediate eval for SOB, difficulty, chest pain, fevers that do not break with antipyretic or any other concerning symptoms as reviewed on patient education handout. Patient verbalizes understanding and is agreeable to treatment plan. Patient left in stable condition [facility] Other 01-01-2022 History general Narrative - Reported* Type Description Date Medical History Asthma Medical History Seasonal allergic rh initis, unspecified chronicity, unspecified trigger Hospitalization History covid 09/2021 [facility] Other Evaluation note* Diagnosis Onset Date Resolution Status Sore throat noneactive [facility] Work Phone: Evaluation note* Diagnosis Cervical pain- Primary Cervicalgia Acute pain of left shoulder Radiculopathy of arm Brachial neuritis or radiculitis nos Stage 2 chronic kidney disease documented in [facility] N[facility] No data available for this section [facility] Progress note No data available for this section [facility] Summary Purpose Family History No Family History Records FoundNo Family History Records Found No data available for this section No Family History Records FoundNo Family History Records FoundNo Family History Records FoundNo Family History Records FoundNo Family History Records FoundNo Family History Records FoundNo Family History Records Found Advance Directives Advance Directive Response Recorded Date/ Time Advance Directives No December 04 4:41pm Chief Complaint and Reason for Visit Chief Complaint Congestion Reason for Visit Sore throat Additional Source Comments REASON FOR VISIT (unrecogniz ed section and content) Reason Comments Neck Pain (unrecognized sect ion and content) No Status Records FoundNo Status Records FoundNo Status Records FoundNo Status Records FoundNo Status Records FoundNo Status Records FoundNo Status Records FoundNo Status Records FoundNo Status Records Found INFORMATION SOURCE (unrecogn ized section and content) DATE CREATED AUTHOR 08/24/2022 [facility] dical Specialist DATE CREATED AUTHOR AUTHOR'S ORGANIZ ATION 10/08/2022 [facility] DATE CREATED AUTHOR AUTHOR'S ORGANIZ ATION [address] [facility] DATE CREATED AUTHOR AUTHOR'S ORGANIZ ATION 09/23/2024 [facility] dical Specialists EPIC DATE CREATED AUTHOR AUTHOR'S ORGANIZ ATION 09/24/[address] [facility] Care Teams (unrecognized sec tion and content) Radio News Writer Relationship Specialty Start Date End Date Ozzy Garcia MD [address] [place] [address] PCP - General Family Medicine 01/22/23 Team Status: Active Member Role Status Dates Ozzy Garcia MD Primary Care Provider Active Team Status: Inactive Member Role Status Dates Ozzy Garcia MD Primary Care Provider Active Start: December 05, 2023 End: December 05, 2023 Bridgett Bradley APRN Attending Provider Active Start: December 05, 2023 End: December 05, 2023 Radio News Writer Relationship Specialty Start Date End Date Ozzy Garcia MD [address] [facility] [address] PCP - General Family Medicine 01/22/23 Radio News Writer Relationship Specialty Start Date End Date Ozzy Garcia MD [address] [facility] [address] PCP - General Family Medicine 01/22/23 Radio [employer] Writer Relationship Specialty Start Date End Date Ozzy Garcia MD [address] [facility] [address] PCP - General Family Medicine 01/22/23 Goals (unrecognized section and content) Goals may be documented in a n alternate section FOR RECORDS PERTAINING TO PATIENTS WHO ARE OR HAVE BEEN ENROLLED IN A CHEMICAL DEPENDENCY/SUBSTANCEABUSE PROGRAM, SOME INFORMATION MAY BE OMITTED. This clinical summary was aggregated from multiple sources. Caution should be exercised in using it in the provision of clinical care. This summary normalizes information from multiple sources, and as a consequence, information in this document may materially change the coding, format and clinical context of patient data. In addition, data may be omitted in some cases. CLINICAL DECISIONS SHOULD BE BASED ON THE PRIMARY CLINICAL RECORDS. [facility] [employer] [facility]. provides no warranty or guarantee of the accuracy or completeness of information in this document.
[2024-10-06 16:40] VITALS: BP 102/66; PULSE 110; TEMP 38.2; O2SAT 95
[2024-10-06 17:07] VITALS: PULSE 105; TEMP 37.2; O2SAT 97
== END 2024-10-06 17:36 | disposition home or self-care (01) ==
PROVIDERS: Physician Assistant; Emergency Provider Emergency Medicine; PCP Family Medicine
DX: R50.9 Fever, unspecified (principal); J06.9 Acute upper respiratory infection, unspecified; R05.9 Cough, unspecified
CPT/HCPCS: 71045; 87070; 87804; 87811; 87880; 99285; Q0162